=== PATIENT | female | born 1975 ===

== ENCOUNTER 2016-09-18 11:03 | Emergency (ER) | payer MEDICAID ==
[2016-09-18 11:04] VITALS: BMI 37.8
[2016-09-18 11:08] VITALS: BP 129/81; PULSE 95; RESP 19; TEMP 98.1; O2SAT 99
--- NOTE | 2016-09-18 12:21 | ED PDOC ---
HPI: Abdomen Time Seen by Provider: 09/18/16 11:42 Chief Complaint (Nursing): Abdominal Pain Chief Complaint (Provider): Abdominal Pain History Per: Patient History/Exam Limitations: no limitations Onset/Duration Of Symptoms: Days Current Symptoms Are (Timing): Still Present Severity: Mild Location Of Pain/Discomfort: Suprapubic Quality Of Discomfort: "Pain" Associated Symptoms: denies: Fever, Nausea, Urinary Symptoms Exacerbating Factors: None Alleviating Factors: None Additional Complaint(s): Patient is a 41 year old female who is reportedly 18 weeks , presents to ED for decreased movement since yesterday. Patient also reports mild surpapubic pain but denies vaginal bleeding or vaginal discharged. Normal U/S 1 month ago. OB_GYN: Dr. Chen Past Medical History Reviewed: Historical Data, Nursing Documentation, Vital Signs Vital Signs: Last Vital Signs Temp 98.1 F 09/18/16 11:08 Pulse 95 H 09/18/16 11:08 Resp 19 09/18/16 11:08 BP 129/81 09/18/16 11:08 Pulse Ox 99 09/18/16 14:47 - Medical History PMH: Asthma Denies: Chronic Kidney Disease - Surgical History Surgical History: No Surg Hx - Family History Family History: States: Unknown Family Hx - Living Arrangements Living Arrangements: With Family - Home Medications Home Medications: Ambulatory Orders Medication Instructions Recorded Acetaminophen [Non-Aspirin Pain 650 mg PO Q4 PRN #20 tablet 07/07/16 Relief] Oseltamivir Phosphate [Tamiflu] 75 mg PO BID #10 capsule 07/07/16 - Allergies Allergies/Adverse Reactions: Allergies Allergy/AdvReac Type Severity Reaction Status Date / Time No Known Allergies Allergy Verified 09/18/16 11:29 Review of Systems ROS Statement: Except As Marked, All Systems Reviewed And Found Negative Constitutional: Negative for: Fever, Weakness Gastrointestinal: Positive for: Abdominal Pain. Negative for: Nausea, Vomiting Genitourinary Female: Negative for: Dysuria, Vaginal Discharge, Vaginal Bleeding Musculoskeletal: Negative for: Back Pain Neurological: Negative for: Weakness, Numbness Physical Exam - Reviewed Nursing Documentation Reviewed: Yes Vital Signs Reviewed: Yes - Physical Exam Appears: Positive for: Non-toxic, No Acute Distress Skin: Positive for: Normal Color, Warm Eye Exam: Positive for: Normal appearance Neck: Positive for: Normal, Painless ROM Gastrointestinal/Abdominal: Positive for: Tenderness (mild surpapubic ), Other ( Gravid uterus ). Negative for: Distended, Guarding, Rebound Extremity: Positive for: Normal ROM Neurologic/Psych: Positive for: Alert, Oriented - Laboratory Results Result Diagrams: 09/18/16 13:25 09/18/16 13:25 - ECG O2 Sat by Pulse Oximetry: 99 (RA) Pulse Ox Interpretation: Normal Medical Decision Making Medical Decision Making: Time: 1215 Initial impression: demise and threatened miscarriage Initial plan: -- BMP -- Urine preg -- Urine dip -- CBC -- U/S Time: 1445 U/S results reveiwed PROCEDURE: OB Pelvic Ultrasound HISTORY: no movements COMPARISON: 1227 FINDINGS: UTERUS: Gestational sac: There is a single live intrauterine fetus in oblique presentation. Heart rate: 148 bpm. BPD: 4.46 cm corresponding to 19 weeks and 3 days of gestational age HC: 16.7 cm corresponding to 19 weeks and 3 days of gestational age AC: 13.9 T8 cm corresponding to 19 weeks and 3 days of gestational age FL: 3.1 cm corresponding to 19 weeks and 4 days of gestational age age (Ultrasound estimated): 19 weeks and 2 days Date of delivery (Ultrasound estimated) : 02/09/2017 Placenta is posterior. CERVIX: Long and closed. No cervical abnormality seen. The cervical length measures 5.1 cm. RIGHT OVARY: Not visualized. LEFT OVARY: Not visualized. FREE FLUID: None. OTHER FINDINGS: None. IMPRESSION: Single live intrauterine fetus in oblique presentation with mean gestational age of 19 weeks and 2 days. heart rate is 148 beats per minute. The ultrasound dates correspond with the clinical dates. Scribe Attestation: Documented by Sherrill Mclean acting as a scribe for Toshia Romano MD MD Scribe Attestation: All medical record entries made by the Scribe were at my direction and personally dictated by me. I have reviewed the chart and agree that the record accurately reflects my personal performance of the history, physical exam, medical decision making, and the department course for this patient. I have also personally directed, reviewed, and agree with the discharge instructions and disposition. Disposition - Clinical Impression Clinical Impression: Abdominal pain during , Threatened in second trimester - Patient ED Disposition Is Patient to be Admitted: No Doctor Will See Patient In The: Office Counseled Patient/Family Regarding: Studies Performed, Diagnosis, Need For Followup - Disposition Referrals: Pauly Radford MD [Family Provider] - Disposition: Routine/Home Disposition Time: 15:29 Condition: GOOD Additional Instructions: Follow up with your PCP within 1 week. Return for worsening. Instructions: Abdominal Pain in (ED)
[2016-09-18 13:46] LABS: CHLORIDE 103 mmol/L (98-107); SODIUM 135 mmol/l (132-148)
[2016-09-18 13:49] LABS: CARBON DIOXIDE 21 mmol/L (22-30); GFR AFRICAN-AMERICAN > 60
[2016-09-18 13:50] LABS: BLOOD UREA NITROGEN 6 mg/dl (7-17); CALCIUM 9.3 mg/dL (8.4-10.2); GLUCOSE,RANDOM 78 mg/dL (65-105)
[2016-09-18 13:51] LABS: POTASSIUM 4.6 MMOL/L (3.6-5.0)
--- NOTE | 2016-09-18 14:11 | US ---
PROCEDURE: OB Pelvic Ultrasound HISTORY: no movements COMPARISON: 1227 FINDINGS: UTERUS: Gestational sac: There is a single live intrauterine fetus in oblique presentation. Heart rate: 148 bpm. BPD: 4.46 cm corresponding to 19 weeks and 3 days of gestational age HC: 16.7 cm corresponding to 19 weeks and 3 days of gestational age AC: 13.9 T8 cm corresponding to 19 weeks and 3 days of gestational age FL: 3.1 cm corresponding to 19 weeks and 4 days of gestational age age (Ultrasound estimated): 19 weeks and 2 days Date of delivery (Ultrasound estimated) : 02/09/2017 Placenta is posterior. CERVIX: Long and closed. No cervical abnormality seen. The cervical length measures 5.1 cm. RIGHT OVARY: Not visualized. LEFT OVARY: Not visualized. FREE FLUID: None. OTHER FINDINGS: None. IMPRESSION: Single live intrauterine fetus in oblique presentation with mean gestational age of 19 weeks and 2 days. heart rate is 148 beats per minute. The ultrasound dates correspond with the clinical dates.
[2016-09-18 14:40] LABS: BASO % 0.5 % (0.0-2.0); EOS # 0.2 K/uL (0.0-0.7); EOS % 2.4 % (0.0-4.0); HEMATOCRIT 35.2 % (34.0-47.0); LYMPH # 2.1 K/uL (1.0-4.3); LYMPH % 23.1 % (20.0-40.0); MEAN CORPUSCULAR HEMOGLOBIN 26.6 pg (27.0-31.0); MEAN CORPUSCULAR HGB CONC 31.9 g/dL (33.0-37.0); MEAN PLATELET VOLUME 11.5 fl (7.2-11.7); MONO # 0.6 K/uL (0.0-0.8); MONO % 6.9 % (0.0-10.0); NEUT # 6.1 K/uL (1.8-7.0); NEUT % 67.1 % (50.0-75.0); NRBC % 4.9 % (0.0-0.0); RED CELL DISTRIBUTION WIDTH 15.6 % (11.5-14.5); WHITE BLOOD COUNT 9.1 K/uL (4.8-10.8)
[2016-09-18 14:44] LABS: MEAN CELL VOLUME 83.2 fl (81.0-99.0)
== END 2016-09-18 15:37 | disposition home or self-care (01) ==
LOC: H.ER 11:03
DX: O26.899 Other specified pregnancy related conditions, unspecified trimester (principal); Z3A.19 19 weeks gestation of pregnancy; O20.0 Threatened abortion

== ENCOUNTER 2016-10-12 15:29 | Emergency (ER) | payer MEDICAID ==
[2016-10-12 16:08] VITALS: BMI 35.6
[2016-10-12 16:10] VITALS: BP 118/67; PULSE 92; RESP 19; TEMP 97.8; O2SAT 100
--- NOTE | 2016-10-12 16:11 | ED PDOC ---
HPI: CCC, URI, Sore Throat Time Seen by Provider: 10/12/16 15:56 Chief Complaint (Provider): Nasal Congestion History Per: Patient, Family (daughter) History/Exam Limitations: no limitations Have you had recent travel within the past 21 days to any of the following countries: [place], [place], [place] or [place]?: No Onset/Duration Of Symptoms: Days (a few days) Current Symptoms Are (Timing): Still Present Associated Symptoms: denies: Fever, Chills, Cough Additional Complaint(s): Aileen tAkinson is a 41 year old female, with an EGA of approximately 21 weeks and a past medical history inclusive of asthma, who presents to the ED on , accompanied by her daughter, for the evaluation of moderate nasal congestion that she has experienced over the past few days. Some associated nighttime rhinorrhea also reported in addition to pruritus of her eyes/ears. Denies fever, chills or cough. PMD: [facility] Past Medical History Reviewed: Historical Data, Nursing Documentation, Vital Signs Vital Signs: Last Vital Signs Temp 97.8 F 10/12/16 16:08 Pulse 92 H 10/12/16 16:08 Resp 19 10/12/16 16:08 BP 118/67 10/12/16 16:08 Pulse Ox 100 10/12/16 16:08 - Medical History PMH: Asthma Denies: Chronic Kidney Disease - Family History Family History: States: Unknown Family Hx - Living Arrangements Living Arrangements: With Family - Home Medications Home Medications: Ambulatory Orders Medication Instructions Recorded Acetaminophen [Non-Aspirin Pain 650 mg PO Q4 PRN #20 tablet 07/07/16 Relief] Oseltamivir Phosphate [Tamiflu] 75 mg PO BID #10 capsule 07/07/16 Loratadine [Claritin] 10 mg PO DAILY PRN #5 tab 10/12/16 - Allergies Allergies/Adverse Reactions: Allergies Allergy/AdvReac Type Severity Reaction Status Date / Time No Known Allergies Allergy Verified 09/18/16 11:29 Review of Systems Constitutional: Negative for: Fever, Chills Eyes: Positive for: Other (eye pruritus) ENT: Positive for: Nose Discharge, Nose Congestion, Other (ear pruritus) Respiratory: Negative for: Cough Gastrointestinal: Negative for: Nausea, Vomiting, Abdominal Pain Genitourinary Female: Negative for: Dysuria, Vaginal Discharge, Vaginal Bleeding , Pelvic Pain Physical Exam - Reviewed Nursing Documentation Reviewed: Yes Vital Signs Reviewed: Yes - Physical Exam Appears: Positive for: Non-toxic, No Acute Distress Head Exam: Positive for: ATRAUMATIC, NORMOCEPHALIC Skin: Positive for: Normal Color, Warm, Dry Eye Exam: Positive for: Normal appearance, PERRL ENT: Positive for: Pharynx Is (clear), Nasal Congestion, Other (uvula midline). Negative for: Pharyngeal Erythema, Tonsillar Exudate, Tonsillar Swelling Cardiovascular/Chest: Positive for: Regular Rate, Rhythm. Negative for: Murmur Respiratory: Positive for: Normal Breath Sounds. Negative for: Rales, Rhonchi, Wheezing, Respiratory Distress Neurologic/Psych: Positive for: Alert, Oriented Medical Decision Making Medical Decision Makin:56 Initial Impression: allergic rhinitis 16:15 Patient is medically stable and requires no emergent treatment in the ED at this time. Patient will be discharged home with Rx for Claritin. Counseling was provided and all questions were answered regarding diagnosis and need for follow up with [facility]. There is agreement to discharge plan. Return if symptoms persist or worsen. Clinical Impression: allergic rhinitis Scribe Attestation: Documented by Mayra Preston, acting as a scribe for Isabella Bucio MD. Provider Scribe Attestation: All medical record entries made by the Scribe were at my direction and personally dictated by me. I have reviewed the chart and agree that the record accurately reflects my personal performance of the history, physical exam, medical decision making, and the department course for this patient. I have also personally directed, reviewed, and agree with the discharge instructions and disposition. Disposition - Clinical Impression Clinical Impression: Allergic rhinitis - Patient ED Disposition Is Patient to be Admitted: No Counseled Patient/Family Regarding: Diagnosis, Need For Followup, Rx Given - Disposition [facility]errals[facility]] Disposition: Routine/Home Disposition Time: 16:15 Condition: STABLE Prescriptions: Loratadine [Claritin] 10 mg PO DAILY PRN #5 tab PRN Reason: Allergy Symptoms Instructions: Allergic Rhinitis (ED) Print Language: FRISIAN
== END 2016-10-12 16:51 | disposition home or self-care (01) ==
LOC: H.ER 15:29
DX: J30.9 Allergic rhinitis, unspecified (principal)

== ENCOUNTER 2017-01-06 16:46 | Emergency (ER) | payer MEDICAID ==
[2017-01-06 17:11] VITALS: BMI 35.4
[2017-01-06 19:34] LABS: ALB/GLOB RATIO 1.1 (1.0-2.1); ALBUMIN 3.4 g/dL (3.5-5.0); ALT/SGPT 40 U/L (9-52); AST/SGOT 25 U/L (14-36); BLOOD UREA NITROGEN 6 mg/dl (7-17); CALCIUM 9.2 mg/dL (8.4-10.2); GFR AFRICAN-AMERICAN > 60; GFR NON-AFRICAN AMERICAN > 60
[2017-01-06 19:37] LABS: SQUAMOUS EPITHIAL 3 /hpf (0-5); URINE BACTERIA RARE (<OCC); URINE BILIRUBIN NEGATIVE (NEGATIVE); URINE BLOOD NEGATIVE (NEGATIVE); URINE CLARITY SLIGHTY-CLOUDY (Clear); URINE COLOR YELLOW (YELLOW); URINE GLUCOSE (UA) NEG (Normal); URINE LEUKOCYTE ESTERASE NEG Leu/uL (Negative); URINE NITRATE NEGATIVE (NEGATIVE); URINE PROTEIN NEGATIVE (NEGATIVE); URINE UROBILINOGEN 0.2-1.0 mg/dL (0.2-1.0)
--- NOTE | 2017-01-06 21:09 | OBHP ---
Datetime: 01/06/2017 17:38 IP Adm Impression: , intrauterine IP Chief Complaint Other: suprapubic pain/pressure IP Admit Plan: Observation/Evaluation Admit Comment, IP Provider: 41 yo at 34 weeks GA, EDC 02/17/17 w/ LMP on 05/13/16 confirmed with first trimester US presents to [facility] w/ c/o suprapubic pain and pressure since 5pm last night. pt repo rts burning sensation w/ urination x 1 day. reports +fm and states feels contraction every 1 hour and last for 5 min. denies VB,LOF. Denies nausea, vomiting, fever, chills or flank pain. denies chest p ain, dyspnea or blurry vision. 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 medications: pnv, iron allergies: NKDA Assessment: 41 yo at 34 weeks GA presents to [facility] w/ c/o suprapubic pain and pressure since 5 pm last night and dysuria x 1 day. Plan: continue monitor UA cmp fractionaed bile acid level. Case presented and discussed with on-call OB hospitalist Dr. Madison. Pt will be diascharged home if normal blood and urine test results. Sultan Gomez, PGY1 obh addendum: Clarificationand addition to above Pt has been diagnosed with scabies infection in ob clinic. o: lesions are discrete maculopapula lesions;no diffuse eryhthema noted p: d/c home ptl precauti f/u with ob clinic within 1wk Extremities - PN: Abnormal Abdomen - PN: Abnormal Back - PN: Normal Lungs - PN: Normal Heart - PN: Normal Neurologic - PN: Normal HEENT - PN: Normal General - PN: Normal FHR - Baseline A Provider: 140 Membranes, Provider: Intact Comments, ACOG Physical Exam: skin: discrete maculopapular erythematous rash of diffrent stages on a bdomen, thigh and hands. no signs of superficial bacterial infection. bedside US: fetus in cephalic presenation. Gestation - Est Wks by US: 34.0 IP Hx Assessment: The History has been Reviewed and is Current EGA AdmitDate IP: 34.0 Vital Signs Provider: Reviewed IP Chief Complaint: Maternal discomfort NICHD Variability Prov Fetus A: Moderate 6-25bpm NICHD Accel Fetus A IP Provider: 15X15 FHR Category Provider Fetus A: Category I NICHD Decel Fetus A IP Provider: None Dilatation, Provider: 0 Effacement, Provider: 0 Station, Provider: -3 Genitourinary Exam: Normal DTRs - PN: Normal
== END 2017-01-06 20:22 | disposition home or self-care (01) ==
LOC: H.EROB2 16:46
DX: O47.03 False labor before 37 completed weeks of gestation, third trimester (principal); Z3A.34 34 weeks gestation of pregnancy

== ENCOUNTER 2017-02-01 19:56 | Inpatient (IN) | payer MEDICAID ==
[2017-02-01 20:24] VITALS: BMI 36.3
[2017-02-01] MEDS: Lactated Ringer's 1,000 ML IV SCH ×3 (20:28→22:00)
--- NOTE | 2017-02-01 20:39 | OBADHP ---
Datetime: 02/01/2017 20:32 Admit Comment, IP Provider: 41-year-old at 37 weeks and 5 days gestational age presents to OB ED complaining of contractions. Patient denies any vaginal bleeding or leakage of fluids. Patient reports good movement. Otherwise, patient without complaints. records reviewed. Prenat al care significant for abnormal first trimester screen with subsequent normal amnio, advanced matern al age. GBS negative Past medical history none Past surgical history none Medications vitamins No known drug allergies Obstetrical history normal spontaneous vaginal delivery 4 Social history no tobacco, no alcohol, no drugs Physical exam: Refer to physical exam findings Assessment: 41-year-old at 37 weeks 5 days gestational age in early labor. Both maternal well-being a nd well-being reassuring at this time. GBS negative. Plan: Admit to labor and delivery for management of labor Patient requesting epidural, contact anesthesia Pelvic Type - PN: Adequate Extremities - PN: Normal Abdomen - PN: Normal Back - PN: Normal Breast - PN: Normal Lungs - PN: Normal Heart - PN: Normal Thyroid - PN: Normal Neurologic - PN: Normal HEENT - PN: Normal General - PN: Normal FHR - Baseline A Provider: 130s-140s Membranes, Provider: Intact Comments, ACOG Physical Exam: Cervix 2 cm, 90% effaced, -1 station Membranes intact Cephalic by exam Estimated weight by exam 7 pounds IP Hx Assessment: The History has been Reviewed and is Current Vital Signs Provider: Reviewed; Within Normal Limits IP Chief Complaint: Uterine contractions NICHD Variability Prov Fetus A: Moderate 6-25bpm NICHD Accel Fetus A IP Provider: 15X15 FHR Category Provider Fetus A: Category I NICHD Decel Fetus A IP Provider: None Dilatation, Provider: 2 Effacement, Provider: 90 Station, Provider: -1 Genitourinary Exam: Normal DTRs - PN: Normal EGA AdmitDate IP: 37.5 IP Adm Impression: Term, intrauterine ; Active labor; Intact Membranes IP Admit Plan: Admit to unit; Initiate labor protocol Datetime: 01/06/2017 17:38 IP Chief Complaint Other: suprapubic pain/pressure Gestation - Est Wks by US: 34.0
[2017-02-01 20:53] VITALS: O2SAT 100
[2017-02-01 20:56] LABS: BASO % 0.6 % (0.0-2.0); EOS % 0.4 % (0.0-4.0); HEMATOCRIT 37.4 % (34.0-47.0); LYMPH # 2.1 K/uL (1.0-4.3); LYMPH % 25.4 % (20.0-40.0); MEAN CELL VOLUME 84.3 fl (81.0-99.0); MEAN PLATELET VOLUME 11.1 fl (7.2-11.7); MONO # 0.4 K/uL (0.0-0.8); MONO % 5.2 % (0.0-10.0); NEUT # 5.7 K/uL (1.8-7.0); NEUT % 68.4 % (50.0-75.0); RED CELL DISTRIBUTION WIDTH 15.8 % (11.5-14.5); WHITE BLOOD COUNT 8.3 K/uL (4.8-10.8)
[2017-02-01] MEDS ORDERED: Fentanyl/Bupivacaine HCl 250 ML EPI ONE (21:34)
[2017-02-01] MEDS ORDERED: Oxytocin 30 units/LR 500ML 30 U/500 ML BAG IV ONE (22:46)
[2017-02-01] MEDS ORDERED: Lidocaine 1% Inj (20ml) ONE (23:20)
[2017-02-02] MEDS ORDERED: Bupivacaine HCl 0.25% PF (10 ml) Inj ONE (00:43)
[2017-02-02] MEDS: Lactated Ringer's 1,000 ML IV SCH (05:00)
[2017-02-02] MEDS ORDERED: Oxytocin 30 units/LR 500ML 30 U/500 ML BAG IV ONE (05:58)
[2017-02-02] MEDS: Multivitamin With Minerals Tab PO SCH (08:51)
--- NOTE | 2017-02-02 12:44 | OBDS ---
DELIVERY PERSONNEL Delivery Doctor: Petrona Le MD Cancer Genetics Assistant: Janine Garland RN Anesthesiologist: Meet Fraga MD MATERNAL INFORMATION Delivery Anesthesia: Epidural Medications in Delivery: Pitocin Estimated Blood Loss (ml): 200 Placenta Cultured: No Maternal Complications: None Provider Comments: Normal spontaneous vaginal delivery. Patient delivered viable infant with Apgars of 9 and 9 at one and 5 minutes respectively. Infant delivered by LUANNE position. First-degree lacerati on repaired, as above. Placenta delivered spontaneously. Uterus firm and appropriately hemostatic fol lowing delivery. Patient tolerated delivery and repair well. No complications. Estimated blood loss 2 00 mL. LABOR SUMMARY EDC: 02/17/2017 00:00 No. Babies in Womb: 1 Attempted: No Labor Anesthesia: Epidural LABOR INFORMATION Reason for Induction: Not Applicable Onset of Labor: 01/31/2017 12:00 Complete Dilatation: 02/02/2017 05:41 Oxytocin: Augmentation Group B Beta Strep: Negative Antibiotics # of Doses: 0 Steroids Given: None Reason Steroids Not Administered: Not Applicable MEMBRANES Membranes Rupture Method: Artificial Rupture of Membranes: 02/01/2017 22:34 Length of Rupture (hrs): 7.35 Amniotic Fluid Color: Clear Amniotic Fluid Amount: Small STAGES OF LABOR Stage 1 hrs: 41 Stage 1 min: 41 Stage 2 hrs: 0 Stage 2 min: 14 Stage 3 hrs: 0 Stage 3 min: 3 Total Time in Labor hrs: 41 Total Time in Labor min: 58 VAGINAL DELIVERY Episiotomy: None Laceration Extension: First Degree Laceration Type: Vaginal Laceration Repair: Yes Laceration Repair Note: A first-degree midline perineal laceration. Area infiltrated with 1% lidocai ne. Laceration repaired with 2. 0 Rapide without complication. Patient tolerated well. Initial Vag Sponge Count: 15 Final Vag Sponge Count: 15 Initial Vag Sharps Count: 1 Final Vag Sharps Count: 1 Sponge Count Correct: Yes Sharps Count Correct: Yes Count Comment: count correct BABY A INFORMATION Delivery Date/Time: 02/02/2017 05:55 Method of Delivery: Vaginal Born in Route : No : N/A Forceps: N/A Vacuum Extraction: N/A Shoulder Dystocia : No SHOULDER DYSTOCIA BABY A Delivery Date/Time: 02/02/2017 05:55 PRESENTATION/POSITION BABY A Presentation: Cephalic Cephalic Presentation: Vertex PLACENTA INFORMATION BABY A Placenta Delivery Time : 02/02/2017 05:58 Placenta Method of Delivery: Spontaneous Placenta Status: Delivered SCORES BABY A Heart Rate 1 min: >100 bpm Resp Effort 1 min: Good Cry Reflex Irritability 1 min: Cough or Sneeze or Pulls Away Muscle Tone 1 min: Active Motion Color 1 min: Body Colver, Extremities Blue Resuscitation Effort 1 min: Tactile Stimulation SCORE 1 MIN: 9 Heart Rate 5 min: >100 bpm Resp Effort 5 min: Good Cry Reflex Irritability 5 min: Cough or Sneeze or Pulls Away Muscle Tone 5 min: Active Motion Color 5 min: Body Colver, Extremities Blue Resuscitation Effort 5 min: N/A SCORE 5 MIN: 9 INFORMATION BABY A Gestational Age at Delivery: 37.6 Gestational Status: Term Infant Outcome : Liveborn Infant Condition : Stable Sex: Male IDENTIFICATION/MEDS BABY A ID Band Number: [id number] ID Band Location: Left Leg; Left Arm WEIGHT/LENGTH BABY A Birthweight (gms): 2865 Infant Weight (lb): 6 Weight (oz): 5 CORD INFORMATION BABY A No. Cord Vessels: 3 Nuchal Cord : N/A Infant Cord pH Baby Arterial: n/a Cord pH Baby Venous: n/a Cord Blood Taken: Yes Suction: Mouth; Nose ASSESSMENT BABY A Infant Complications: Multiple Variable Decels Physical Findings at Delivery: Within Normal Limits Respirations: Appears Normal Sales Communications Manager/ALS Called : No Care By: Dom Transferred To: Remains with Mother
[2017-02-02] MEDS: Oxycodone/Acetaminophen 5/325 mg Tab PO PRN ×2 (15:26→21:18)
[2017-02-03] MEDS: Oxycodone/Acetaminophen 5/325 mg Tab PO PRN (01:55)
[2017-02-03 07:22] LABS: HEMATOCRIT 30.8 % (34.0-47.0); MEAN CORPUSCULAR HGB CONC 31.8 g/dL (33.0-37.0); RED CELL DISTRIBUTION WIDTH 16.1 % (11.5-14.5)
[2017-02-03 07:51] LABS: WHITE BLOOD COUNT 13.4 K/uL (4.8-10.8)
[2017-02-03] MEDS: Multivitamin With Minerals Tab PO SCH (10:26)
--- NOTE | 2017-02-03 16:32 | OBPPN ---
Datetime: 02/03/2017 12:07 PP Pain Prov: Within normal limits PP Nausea Prov: Denies PP Flatus Prov: Yes PP BM Prov: Yes PP Breasts Prov: Normal PP Heart Prov: Normal PP Lungs Prov: Normal PP Abdomen/Uterus Prov: Normal PP Lochia Prov: Normal PP Vulva/Perineum Prov: Normal PP CVA Tenderness Prov: Not Done PP Extremities Prov: Normal PP C/S Incision Prov: Not Applicable PP Progress Prov: Normal PP Impression Prov: Normal progression PP Plan Prov: Continue present management PP Progress Note Prov: S: 41 YO s/p 02/02/17. Pt is seen and examined at bedside this AM. No acute overnight events. Pt reports some abdominal pain but well controlled with medications. Pt i s ambulating without difficulties to the bathroom, breast feeding and tolerating PO diet well. Lochia is similar to menses and decreasing in volume. + flatus, + BM. Denies fever/chills, diarrhea, nausea /vomiting, CP/SOB , lightheadedness, calf pain. O: VS: stable Gen: NAD Cardio: S1S2 no M/G/R Resp: clear breathing b/l Abdomen: non-ten, BS+, uterus is below the umbillicus and firm. Ext: non tender and no edema noted NEURO/PSYCHI: AAOx3, no grossly focal deficit, preserved affect and mood. Assessment: 41 YO s/p 02/02/17. Pt is doing well this morning, endorses minimal abdomin al pain but tolerating well with pain meds, ambulating and tolerating PO diet. PPD 1 Pt is encouraged to continue and ambulate continue pain medications percocet and ibuprofen as needed follow up pCBC continue present management in PP Disposition: d/c to home on 02/04/17 Heidy Wolff, PGY I obh addendum: pt seen _ examined by me. agree with above assessmenta and plan. IP PP Procedures: None Vital Signs Provider PP: Reviewed; Within Normal Limits
[2017-02-04] MEDS: Oxycodone/Acetaminophen 5/325 mg Tab PO PRN (01:25)
[2017-02-04] MEDS: Hydrocortisone-Pramoxine 1%-1% Foam(10 gm) TOP SCH ×2 (02:25→09:21)
[2017-02-04] MEDS: Multivitamin With Minerals Tab PO SCH (09:20)
--- NOTE | 2017-02-04 09:49 | OBPPN ---
Datetime: 02/04/2017 05:37 PP Pain Prov: Within normal limits PP Nausea Prov: Denies PP Flatus Prov: Yes PP BM Prov: Yes PP Breasts Prov: Not Done PP Heart Prov: Normal PP Lungs Prov: Normal PP Abdomen/Uterus Prov: Normal PP Lochia Prov: Normal PP Vulva/Perineum Prov: Normal PP CVA Tenderness Prov: Not Done PP Extremities Prov: Normal PP C/S Incision Prov: Not Applicable PP Progress Prov: Normal PP Impression Prov: Normal progression PP Plan Prov: Discharge PP Progress Note Prov: S: 41 YO s/p NVD 02/02/17. Pt seen this morning, pain is controlled with meds, pt is ambulating, breast feeding and tolerating PO diet well. Lochia is similar to menses and d ecreasing in volume. + flatus, + BM. Denies fever/chills, diarrhea, nausea/vomiting, CP/SOB , lighthe adedness, calf pain. -last night pt was c/o of Hemrroids pain, Epifoam and tucks were ordered. O: VS: stable Gen: NAD Cardio: S1S2 no M/G/R Resp: clear breathing b/l Abdomen: non-ten, BS+, uterus is below the umbillicus and firm. Ext: non tender and no edema noted NEURO/PSYCHI: AAOx3, no grossly focal deficit, preserved affect and mood. Assessment: 41 YO s/p 02/02/17. PPD 2 Pt is encouraged to continue and ambulate continue pain medications ibuprofen as needed follow up [facility] pp is 9.8/30.8 continue iron and colace Disposition: d/c to home today 02/04/17 --- Trena Cristina, PGY-1 OB Hospitalist note: This pt was seen and examined by me. Agree with above note. MAHNDO Anemia: asymptomatic IP PP Procedures: None Vital Signs Provider PP: Reviewed; Within Normal Limits
--- NOTE | 2017-02-04 09:49 | OBDCSUM ---
Datetime: 02/04/2017 04:46 Discharged to, Provider: Home Follow up at, Provider: [facility] Disch Instr Activity: Normal activity Disch Instr Diet: Regular Discharge Instructions, Provider: Routine instructions given Discharge Diagnosis, Provider: Term Delivered Discharge Time: 02/04/2017 09:00 Follow up in weeks, Provider: f/u NB visit 02/06 at 4pm and PP visit 03/11 at 10am Disch Referrals: None Contraception discussed, Prov: Yes Disch Activity Restrictions: No sexual activity; Nothing in vagina - Clemons, tampons, douche Discharge Comment, Provider: DOA: 02/01/17 EGA: 37.6 Diagnosis: NVD PRisk factors: none summary of : L_D summary: 41 y/o F DOL: 02/02/17 at 5:55am NVD NB: male : 99 Weight: 2865 PP summary: No serious complications during PP. Lochia= menses, mild pain, controlled with medications Rubella immune, Tdap 12/05/16 blood type: B+ CBC pp: 9.8/30.8 Discharge Date 02/04/17, time 10:00AM Discharge Instructions: -encourage -Ibuprofen for pain PRN -Colace for constipation -Iron -Ambulate as tolerated -f/u NB visit 02/06 at 4pm and PP visit 03/11 at 10am --- Trena Cristina, PGY-1 Datetime: 01/06/2017 20:22 Discharge Instructions, Provider: Routine instructions given Contraception discussed, Prov: Yes
[2017-02-05 00:36] VITALS: BP 121/69; PULSE 72; RESP 20; TEMP 98.6
== END 2017-02-04 14:10 | disposition home or self-care (01) | DRG 373 ==
LOC: H.EROB2 19:56 → H.L&D 20:37 → H.OB/GYN 02-02 08:30
PROVIDERS: ADMIT Obstetrics & Gynecology; ATTEND Obstetrics & Gynecology
PROC: 4A1HXCZ Monitoring of Products of Conception, Cardiac Rate, External Approach (ICD-10-PCS; 2017-02-01)
PROC: 10E0XZZ Delivery of Products of Conception, External Approach (ICD-10-PCS; principal; 2017-02-02)
PROC: 0HQ9XZZ Repair Perineum Skin, External Approach (ICD-10-PCS; 2017-02-02)
DX: O76 Abnormality in fetal heart rate and rhythm complicating labor and delivery (principal); O70.0 First degree perineal laceration during delivery; O09.523 Supervision of elderly multigravida, third trimester; Z37.0 Single live birth; Z3A.37 37 weeks gestation of pregnancy

== ENCOUNTER 2017-02-07 12:52 | Inpatient (IN) | payer MEDICAID ==
[2017-02-07 13:01] VITALS: BMI 35.4
[2017-02-07] MEDS ORDERED: Labetalol 5 mg/ml Inj 20ML IVP ONE (13:45)
--- NOTE | 2017-02-07 13:54 | CT ---
PROCEDURE: CT HEAD WITHOUT CONTRAST. HISTORY: HTN headache COMPARISON: None available. TECHNIQUE: Axial computed tomography images were obtained through the head/brain without intravenous contrast. Radiation dose: Total exam DLP = 1035.54 mGy-cm. This CT exam was performed using one or more of the following dose reduction techniques: Automated exposure control, adjustment of the mA and/or kV according to patient size, and/or use of iterative reconstruction technique. FINDINGS: HEMORRHAGE: No acute parenchymal, subarachnoid or extra-axial hemorrhage. BRAIN: No evidence of large acute infarct. No obvious parenchymal nor extra-axial mass or collection . VENTRICLES: No obstructive hydrocephalus. CALVARIUM: No acute calvarial fractures. PARANASAL SINUSES: Unremarkable as visualized. No significant inflammatory changes. Mildly prominent adenoids. MASTOID AIR CELLS: Unremarkable as visualized. No inflammatory changes. OTHER FINDINGS: None. IMPRESSION: No acute intracranial hemorrhage.
--- NOTE | 2017-02-07 14:09 | ED PDOC ---
HPI: Abdomen Time Seen by Provider: 02/07/17 13:19 Chief Complaint (Nursing): Abdominal Pain Chief Complaint (Provider): Abdominal Pain History Per: Patient History/Exam Limitations: no limitations Onset/Duration Of Symptoms: Days Current Symptoms Are (Timing): Still Present Additional Complaint(s): 41 y/o female who is presents to the emergency department with a complaint of abdominal pain, rectal pain, headache, dizziness, elevated blood pressure, and moderate vaginal bleeding for a couple of days. Patient is and had a normal, spontaneous, vaginal delivery, without complications 5 days ago and went home on 02/04/2017.Reports she is currently breast-feeding. Denies history of hemorrhoids history of hypertension or hypertension during , change of vision, bruising, or fever. Past Medical History Reviewed: Historical Data, Nursing Documentation, Vital Signs Vital Signs: Last Vital Signs Temp 98.3 F 02/10/17 16:05 Pulse 48 L 02/10/17 16:05 Resp 20 02/10/17 16:05 BP 145/73 02/10/17 16:05 Pulse Ox 96 02/10/17 16:05 - Medical History PMH: Asthma Denies: Depression, Diabetes, HTN, Chronic Kidney Disease - Family History Family History: States: Unknown Family Hx - Home Medications Home Medications: Ambulatory Orders Medication Instructions Recorded Docusate Sodium [Colace] 100 mg PO BID #30 capsule 02/04/17 Ferrous Sulfate [Feosol] 325 mg PO BID #30 tab 02/04/17 Ibuprofen [Motrin Tab] 600 mg PO Q6 PRN #30 tab 02/04/17 Multimineral/Multivitamin 1 tab PO DAILY tab 02/04/17 [Therapeutic-M Tab] - Allergies Allergies/Adverse Reactions: Allergies Allergy/AdvReac Type Severity Reaction Status Date / Time No Known Allergies Allergy Verified 09/18/16 11:29 Review of Systems Constitutional: Negative for: Fever, Other (Bruising) Physical Exam - Reviewed Nursing Documentation Reviewed: Yes Vital Signs Reviewed: Yes - Physical Exam Appears: Positive for: Non-toxic, In Acute Distress (Mild painful) Head Exam: Positive for: ATRAUMATIC, NORMAL INSPECTION, NORMOCEPHALIC Skin: Positive for: Normal Color, Warm, Dry Pelvic Exam: Positive for: External Exam Normal, Other (mild diffuse tenderness with firm uterus) - Laboratory Results Result Diagrams: 02/09/17 05:30 02/10/17 05:35 - ECG O2 Sat by Pulse Oximetry: 98 (RA) Pulse Ox Interpretation: Normal Medical Decision Making Medical Decision Making: Time: 13:26 Initial impression:Work up for preeclampsia vs HELLP syndrome vs constipation vs other. Will discuss with OB Initial plan: --Head CT --Labetalol 10 mg IVP --Tylenol 650 mg PO --EKG --B-Type Natriuretic --CMP --Troponin I --CBC w/ diff --PTT & Prothrombin --Tylenol 650 mg PO --Clonidine 0.2 mg PO --Reevaluation --Patient given meds for elevated blood pressure and pending blood work up obtained. Time: 13:53 --Head CT FINDINGS: HEMORRHAGE: No acute parenchymal, subarachnoid or extra-axial hemorrhage. BRAIN: No evidence of large acute infarct. No obvious parenchymal nor extra-axial mass or collection . VENTRICLES: No obstructive hydrocephalus. CALVARIUM: No acute calvarial fractures. PARANASAL SINUSES: Unremarkable as visualized. No significant inflammatory changes. Mildly prominent adenoids. MASTOID AIR CELLS: Unremarkable as visualized. No inflammatory changes. OTHER FINDINGS: None. IMPRESSION: No acute intracranial hemorrhage. labs reviewed, revealing elev transaminases compared to prior, mild elev BNP. 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 Patient found to be bradycardic to mid 30s in ED, rhythm strips scanned to chart. Maintained sinus rhythm with adequate BP however. Given elev BNP, new hypertension requiring antihypertensive therapy, epigastric pain, elev LFTs, bradycardia, r/o complication/ cardiomyopathy, preeclampsia, other. Admit FP service pending CT abd/pelv Scribe Attestation: Documented by Ludy Lindsey, acting as a scribe for Moo Cannon MD. Provider Scribe Attestation: All medical record entries made by the Scribe were at my direction and personally dictated by me. I have reviewed the chart and agree that the record accurately reflects my personal performance of the history, physical exam, medical decision making, and the department course for this patient. I have also personally directed, reviewed, and agree with the discharge instructions and disposition. Disposition - Clinical Impression Clinical Impression: Bradycardia, Abnormal LFTs (liver function tests), Abdominal pain in female - Patient ED Disposition Is Patient to be Admitted: Yes Counseled Patient/Family Regarding: Studies Performed, Diagnosis - Disposition Disposition Time: 14:00 Condition: GOOD - Pt Status Changed To: Hospital Disposition Of: Inpatient - Admit Certification Admit to Inpatient:: After my assessment, the patient will require hospitalization for at least two midnights. This is because of the severity of symptoms shown, intensity of services needed, and/or the medical risk in this patient being treated as an outpatient. - POA Present On Arrival: None
[2017-02-07 14:33] LABS: BASO # 0.1 K/uL (0.0-0.2); BASO % 0.8 % (0.0-2.0); EOS # 0.1 K/uL (0.0-0.7); EOS % 1.7 % (0.0-4.0); HEMATOCRIT 34.7 % (34.0-47.0); LYMPH % 29.2 % (20.0-40.0); MEAN CELL VOLUME 85.1 fl (81.0-99.0); MEAN CORPUSCULAR HEMOGLOBIN 27.2 pg (27.0-31.0); MEAN PLATELET VOLUME 11.3 fl (7.2-11.7); MONO # 0.4 K/uL (0.0-0.8); MONO % 5.9 % (0.0-10.0); NEUT # 4.2 K/uL (1.8-7.0); NEUT % 62.4 % (50.0-75.0); NRBC % 0.1 % (0.0-0.0); RED CELL DISTRIBUTION WIDTH 15.7 % (11.5-14.5); WHITE BLOOD COUNT 6.7 K/uL (4.8-10.8)
[2017-02-07 14:54] LABS: ALB/GLOB RATIO 1.1 (1.0-2.1); ALKALINE PHOSPHATASE 87 U/L (38-126); ALT/SGPT 323 U/L (9-52); AST/SGOT 155 U/L (14-36); BILIRUBIN,TOTAL 0.3 mg/dl (0.2-1.3); BLOOD UREA NITROGEN 13 mg/dl (7-17); CARBON DIOXIDE 23 mmol/L (22-30); CHLORIDE 110 mmol/L (98-107); GFR AFRICAN-AMERICAN > 60; GLUCOSE,RANDOM 82 mg/dL (65-105); SODIUM 141 mmol/l (132-148); TOTAL PROTEIN 5.9 G/DL (6.3-8.2)
[2017-02-07 15:19] LABS: PARTIAL THROMBOPLASTIN TIME 27.6 Seconds (25.6-37.1)
[2017-02-07] MEDS ORDERED: Iohexol 300 100 ML IJ ONE (16:38)
[2017-02-07] MEDS ORDERED: Sodium Chloride 0.9% 50 ML IV ONE (16:38)
[2017-02-07] MEDS ORDERED: Hydrocortisone-Pramoxine(Proctofoam HC) EXT PRN (17:04)
--- NOTE | 2017-02-07 17:08 | CP.PCM.HP ---
<Compa Renee - Last Filed: 02/07/17 19:04> History of Present Illness - History of Present Illness History of Present Illness: 41 year old female who is presented to the emergency department with a complaint of abdominal pain, rectal pain x 1 day. Patient also states headache, dizziness, and moderate vaginal bleeding. Abdominal pain is diffuse and without alleviating/aggravating factors. No n/v. Not taking meds. Patient was found to have elevated blood pressure in ED. Patient is 5 days and had a without complications and went home on 02/04/17. Patient is currently breast- feeding and formula feeding. Denies history of hemorrhoids, hypertension, complications during /delivery, chest pain, sob, change of vision, fever, chills. No recent trauma, change in diet, or similar episodes in the past. No bruising. No brbpr, melena, diarrhea. PMD: SCC PMHx: Obesity Meds: None Allergies: NKDA Surgical history: Denies OBHx: # 1: 1995, normal spontaneous vaginal delivery (), no complications. # 2: 1996, normal spontaneous vaginal delivery () , Oligohydramnios . # 3 2000, normal spontaneous vaginal delivery (), Oligohydramnios. # 4: 2005, normal spontaneous vaginal delivery (), no complications. # 5: 2017, normal spontaneous vaginal delivery (), no complications. Family hx: Father: , at 80 Y/o with Pneumonia complication Mother: alive, HTN Son at age 9 due to Cerebral aneurism. Social hx: Denies etoh, drug, tobacco use. ED Course: Temp 98.3 F Pulse 50 Resp 18 BP 165/77 Pulse Ox 98 EKG: Sinus bradycardia at 47bpm PE: abdomen mild diffuse tenderness with firm uterus Labs: CBC, CMP, Troponin I, CMP, PT/PTT Meds:Tylenol 650 mg PO, Clonidine 0.2 mg PO Imaging:Head CT - IMPRESSION: No acute intracranial hemorrhage. Present on Admission - Present on Admission Any Indicators Present on Admission: No Review of Systems - Review of Systems Review of Systems: PER HPI Past Patient History - Infectious Disease Hx of Infectious Diseases: None - Past Medical History & Family History Past Medical History?: No - Past Social History Smoking Status: Never Smoked - CARDIAC Hx Hypertension: No - PULMONARY Hx Asthma: Yes - NEUROLOGICAL Hx Neurological Disorder: No - HEENT Hx HEENT Problems: No - RENAL Hx Chronic Kidney Disease: No - ENDOCRINE/METABOLIC Hx Endocrine Disorders: No - HEMATOLOGICAL/ONCOLOGICAL Hx Blood Disorders: No - INTEGUMENTARY Hx Dermatological Problems: No - MUSCULOSKELETAL/RHEUMATOLOGICAL Hx Musculoskeletal Disorders: No - GASTROINTESTINAL Hx Gastrointestinal Disorders: No - GENITOURINARY/GYNECOLOGICAL Hx Genitourinary Disorders: No - PSYCHIATRIC Hx Depression: No - SURGICAL HISTORY Hx Surgeries: Yes Other/Comment: RIGHT FOOT SURGERY - ANESTHESIA Hx Anesthesia: Yes Hx Anesthesia Reactions: No Meds Allergies/Adverse Reactions: Allergies Allergy/AdvReac Type Severity Reaction Status Date / Time No Known Allergies Allergy Verified 09/18/16 11:29 Physical Exam - Constitutional Appears: Non-toxic, Other (obese) - Head Exam Head Exam: ATRAUMATIC, NORMAL INSPECTION, NORMOCEPHALIC - Eye Exam Eye Exam: EOMI, Normal appearance Pupil Exam: PERRL - Neck Exam Neck exam: Positive for: Normal Inspection - Respiratory Exam Respiratory Exam: Clear to Auscultation Bilateral, NORMAL BREATHING PATTERN. absent: Rales, Wheezes - Cardiovascular Exam Cardiovascular Exam: Bradycardia, +S1, +S2 - GI/Abdominal Exam GI & Abdominal Exam: Normal Bowel Sounds, Soft, Tenderness (diffuse). absent: Guarding - Extremities Exam Extremities exam: Positive for: normal inspection. Negative for: calf tenderness, pedal edema - Back Exam Back exam: NORMAL INSPECTION. absent: CVA tenderness (L), CVA tenderness (R) - Neurological Exam Neurological exam: Alert, Oriented x3 - Psychiatric Exam Psychiatric exam: Normal Affect, Normal Mood - Skin Skin Exam: Dry, Intact, Normal Color, Warm Results - Vital Signs Recent Vital Signs: Last Vital Signs Temp 98.3 F 02/07/17 13:01 Pulse 34 L 02/07/17 16:18 Resp 18 02/07/17 15:20 BP 155/72 H 02/07/17 16:18 Pulse Ox 99 02/07/17 15:20 - Labs Result Diagrams: 02/07/17 14:19 02/07/17 14:19 - EKG Data EKG Interpreted by: ER Physician EKG shows normal: Sinus rhythm Rate: Bradycardia Assessment & Plan (1) Abdominal pain Status: Acute (2) Bradycardia Status: Acute (3) Hypertension Status: Acute (4) Elevated LFTs Status: Acute (5) Anemia Status: Chronic (6) DVT prophylaxis Status: Acute - Assessment and Plan (Free Text) Assessment: 41 year old female who is 5 days with abdominal pain/rectal pain x 1 day associated with headache and dizziness. Noted to have elevated BP, bradycardia, elevated LFTs. Plan: (1) Abdominal pain Elevated LFTs, Afebrile, no leukocytosis Abd ultrasound noted CT abdomen noted Surgery consulted for acalculous cholecystitis NPO Zosyn q6h Toradol prn pain IVF f/u blood cx (2) Bradycardia Low 40s on monitor No cp/sob/palpitations. EKG shows sinus ronald Cardiac monitoring Cardiology consulted, appreciate recommendations (3) Hypertension 133/78 after clonidine in ED Will continue to monitor in tele Consider Hydralazine if BP elevated OB consulted for abdominal pain/ htn preeclampsia? (4) Elevated LFTs AST/ALT: 155/323 Elevated from previous labs, reviewed. Imaging studies noted. (5) Anemia - Hgb 11.1 - No supplementation at this time, continue to monitor (6) DVT prophylaxis - SCDs <Angela Pope - Last Filed: 02/08/17 08:36> Physical Exam - Skin Additional comments: ADDENDUM ATTENDING NOTE CHART REVIEWED. CASE DISCUSSED AT LENGTH WITH RESIDENT. OB CONSULT DONE AND WILL FOLLOW. CARDIOLOGY CONSULT ORDERED WELL GENERAL SURGERY CONSULT. ZOSYN IV STARTED FOR CHOLECYSTITIS. AGREE WITH PLAN. Results - Vital Signs Recent Vital Signs: Last Vital Signs Temp 98.4 F 02/08/17 08:10 Pulse 45 L 02/08/17 08:10 Resp 18 02/08/17 08:10 BP 149/74 02/08/17 08:10 Pulse Ox 97 02/08/17 08:10 - Labs Result Diagrams: 02/08/17 06:00 02/07/17 14:19 Labs: Laboratory Results - last 24 hr 02/07/17 02/08/17 17:35 06:00 WBC 7.3 RBC 4.23 Hgb 11.5 L Hct 36.0 MCV 85.0 MCH 27.2 MCHC 32.0 L RDW 15.7 H Plt Count 195 Urine Color Yellow Urine Clarity Slighty-cloudy Urine pH 6.0 Ur Specific [place] 1.015 Urine Protein 30 Urine Glucose (UA) Neg Urine Ketones Negative Urine Blood Large Urine Nitrate Negative Urine Bilirubin Negative Urine Urobilinogen 0.2-1.0 Ur Leukocyte Esterase Mod Urine RBC (Auto) 233 H Urine Microscopic WBC 59 H Ur Squamous Epith Cells 5 Urine Bacteria Occ H Hyaline Casts 0-2
[2017-02-07] MEDS: Sodium Chloride 0.9% 1,000 ML IV SCH (17:39)
[2017-02-07 17:54] LABS: RBC URINE 233 /hpf (0-3); URINE BACTERIA OCC (<OCC); URINE BILIRUBIN NEGATIVE (NEGATIVE); URINE BLOOD LARGE (NEGATIVE); URINE COLOR YELLOW (YELLOW); URINE GLUCOSE (UA) NEG (Normal); URINE KETONE NEGATIVE (NEGATIVE); URINE LEUKOCYTE ESTERASE MOD Leu/uL (Negative); URINE PROTEIN 30 mg/dL (NEGATIVE); URINE UROBILINOGEN 0.2-1.0 mg/dL (0.2-1.0); WBC URINE 59 /hpf (0-5)
--- NOTE | 2017-02-07 18:02 | US ---
HISTORY: Abdominal pain the, elevated LFTs, COMPARISON: None. TECHNIQUE: Grayscale imaging was performed. FINDINGS: LIVER: Measures 21.9 cm. Normal echogenicity of the liver parenchyma. No mass. No intrahepatic bile duct dilatation. GALLBLADDER: There are no gallstones. There is diffuse thickening of the gallbladder wall which measures 1.3 cm. No pericholecystic fluid. The sonographic Maldonado's sign is positive. COMMON BILE DUCT: Measures 3.0 mm. No stones. No dilatation. PANCREAS: Unremarkable as visualized. No mass. No ductal dilatation. RIGHT KIDNEY: Measures 12.2cm. Normal echogenicity. No calculus, mass, or hydronephrosis. LEFT KIDNEY: Measures 11.3cm. Normal echogenicity. No calculus, mass, or hydronephrosis. SPLEEN: Normal in size and contour. No mass. AORTA: No aneurysmal dilatation. IVC: Unremarkable. OTHER FINDINGS: There is trace right pleural effusion. There is mild perihepatic ascites. IMPRESSION: 1. Findings are concerning for acute acalculous cholecystitis. 2. Small pleural effusion and right perihepatic ascites. 3. Mild hepatomegaly.
--- NOTE | 2017-02-07 18:15 | CT ---
PROCEDURE: CT Abdomen and Pelvis with contrast HISTORY: Abd pain, COMPARISON: Comparison is made to the previous study dated 03/24/2015 TECHNIQUE: Contrast dose: 95 mL of Omnipaque 300. Axial and reformatted coronal and sagittal CT images of the abdomen and pelvis were obtained after IV contrast administration. Radiation dose: Total exam DLP = 1007.3 mGy-cm. This CT exam was performed using one or more of the following dose reduction techniques: Automated exposure control, adjustment of the mA and/or kV according to patient size, and/or use of iterative reconstruction technique. FINDINGS: LOWER THORAX: There is a small right pleural effusion seen. There is also questionable trace left pleural effusion. LIVER: Interval appearance of 1.2 centimeter enhancing lesion at the right liver lobe image 61 series 3 since the previous exam. The possibility of neoplasm such as metastasis should be considered. Otherwise the liver demonstrate a mildly heterogeneous enhancement. The portal vein is patent. GALLBLADDER AND BILE DUCTS: UnremarkableThe gallbladder is distended. There is pericholecystic fluid seen. The biliary tree is not dilated. . PANCREAS: Unremarkable. No gross lesion or ductal dilatation. SPLEEN: Unremarkable. ADRENALS: Unremarkable. No mass. KIDNEYS AND URETERS: Unremarkable. No hydronephrosis. No solid mass. VASCULATURE: Unremarkable. No aortic aneurysm. BOWEL: Unremarkable. No obstruction. No gross mural thickening. APPENDIX: No evidence of appendicitis. PERITONEUM: There is interval appearance of small ascites in the abdomen since the previous exam. LYMPH NODES: Unremarkable. No enlarged lymph nodes. BLADDER: The urinary bladder is partially distended. REPRODUCTIVE: There is interval significant increase in the size of the uterus seen extending to the upper abdomen in this study. The uterus demonstrates heterogeneous enhancement. The possibility of neoplasm should be excluded. The differential diagnosis includes also acute hemorrhage in large fibroid. Further assessment of the uterus is recommended. The adnexa are not well visualized in this study. BONES: No acute fracture. OTHER FINDINGS: None. IMPRESSION: Interval appearance of small right pleural effusion. 1.2 centimeter enhancing nodule seen at the right liver lobe new compared to the previous exam. The possibility of malignant neoplasm such as metastasis should be excluded. Interval appearance of small ascites in the abdomen. Pericholecystic fluid which could be due to new ascites. If clinically warranted further assessment of the gallbladder by ultrasound may be obtained. Interval markedly increase in the size of the uterus since the previous exam. The possibility of neoplasm in the uterus should be excluded. Further assessment is recommended.
--- NOTE | 2017-02-07 18:38 | RAD ---
HISTORY: COMPARISON: Upper TECHNIQUE: Chest PA and lateral FINDINGS: LINES AND TUBES: None. LUNG AND PLEURA: There is confluent airspace disease in both lower lobes, worse on the right. HEART AND MEDIASTINUM: The heart is not enlarged. The hilar and mediastinal contours are within normal limits. SKELETAL STRUCTURES: The bony structures are within normal limits for the patient's age. VISUALIZED UPPER ABDOMEN: Normal. OTHER FINDINGS: None. IMPRESSION: Confluent airspace disease in the lower lobes, worse on the right could represent pneumonia. Follow-up is recommended to ensure resolution.
--- NOTE | 2017-02-07 19:02 | CP.PCM.CON ---
History of Present Illness - History of Present Illness History of Present Illness: General Surgery Consult Note for Dr. Rico Reason for Consult: Abdominal pain, possible acalculous cholecystitis 41 F with PMH of anemia presents with complaint of abdominal pain. Patient states that she has had the pain for 1 day. It started while resting at home. Patient gave to 5th child five days ago. She had a without any complications. She states she has never had pain like this in the past. She rates pain 4/10 currently, earlier it was worse. She describes it as constant and sharp located in periumbilical region. Denies alleviating or exacerbating factors. Denies fever/chills, cp, sob, n/v/d, constipation, incontinence. PMD: [facility] PMH: Anemia Meds: Iron, tylenol Allergies: NKDA PSH: Denies FH: Father - due to Pneumonia , Mother - HTN Social: Denies tobacco/etoh/illicit drug use Review of Systems - Review of Systems All systems: reviewed and no additional remarkable complaints except (abdominal pain, vaginal bleeding, headache) Past Patient History - Infectious Disease Hx of Infectious Diseases: None - Past Medical History & Family History Past Medical History?: No - Past Social History Smoking Status: Never Smoked - CARDIAC Hx Hypertension: No - PULMONARY Hx Asthma: Yes - NEUROLOGICAL Hx Neurological Disorder: No - HEENT Hx HEENT Problems: No - RENAL Hx Chronic Kidney Disease: No - ENDOCRINE/METABOLIC Hx Endocrine Disorders: No - HEMATOLOGICAL/ONCOLOGICAL Hx Blood Disorders: No - INTEGUMENTARY Hx Dermatological Problems: No - MUSCULOSKELETAL/RHEUMATOLOGICAL Hx Musculoskeletal Disorders: No - GASTROINTESTINAL Hx Gastrointestinal Disorders: No - GENITOURINARY/GYNECOLOGICAL Hx Genitourinary Disorders: No - PSYCHIATRIC Hx Depression: No - SURGICAL HISTORY Hx Surgeries: Yes Other/Comment: RIGHT FOOT SURGERY - ANESTHESIA Hx Anesthesia: Yes Hx Anesthesia Reactions: No Meds Allergies/Adverse Reactions: Allergies Allergy/AdvReac Type Severity Reaction Status Date / Time No Known Allergies Allergy Verified 09/18/16 11:29 - Medications Medications: Current Medications Hydrocortisone/Pramoxine (Proctofoam) 1 applic EXT Q8 PRN PRN Reason: Hemorrhoids Sodium Chloride (Sodium Chloride 0.9%) 1,000 mls @ 100 mls/hr IV .Q10H KAYLEIGH Last Admin: 02/07/17 17:39 Dose: 100 mls/hr Ketorolac Tromethamine (Toradol) 30 mg IVP Q6 PRN PRN Reason: Pain, moderate (4-7) Last Admin: 02/07/17 18:51 Dose: 30 mg Physical Exam - Constitutional Appears: No Acute Distress - Head Exam Head Exam: ATRAUMATIC, NORMOCEPHALIC - Eye Exam Eye Exam: Normal appearance - ENT Exam ENT Exam: Mucous Membranes Moist - Neck Exam Neck exam: Positive for: Full Rom - Respiratory Exam Respiratory Exam: NORMAL BREATHING PATTERN - Cardiovascular Exam Cardiovascular Exam: Bradycardia - GI/Abdominal Exam GI & Abdominal Exam: Soft, Tenderness (periumbilical). absent: Distended, Firm , Guarding, Rebound, Rigid Additional comments: (-) gray's sign - Extremities Exam Extremities exam: Positive for: pedal pulses present. Negative for: calf tenderness - Back Exam Back exam: absent: CVA tenderness (L), CVA tenderness (R) - Neurological Exam Neurological exam: Alert, CN II-XII Intact, Oriented x3 - Skin Skin Exam: Dry, Intact, Normal Color, Warm Results - Vital Signs Recent Vital Signs: Last Vital Signs Temp 98.3 F 02/07/17 13:01 Pulse 39 L 02/07/17 18:05 Resp 18 02/07/17 15:20 BP 148/76 02/07/17 18:05 Pulse Ox 99 02/07/17 15:20 - Labs Result Diagrams: 02/08/17 06:00 02/08/17 06:00 Labs: Laboratory Results - last 24 hr 02/07/17 17:35 Urine Color Yellow Urine Clarity Slighty-cloudy Urine pH 6.0 Ur Specific [place] 1.015 Urine Protein 30 Urine Glucose (UA) Neg Urine Ketones Negative Urine Blood Large Urine Nitrate Negative Urine Bilirubin Negative Urine Urobilinogen 0.2-1.0 Ur Leukocyte Esterase Mod Urine RBC (Auto) 233 H Urine Microscopic WBC 59 H Ur Squamous Epith Cells 5 Urine Bacteria Occ H Hyaline Casts 0-2 Assessment & Plan - Assessment and Plan (Free Text) Plan: 41 F with PMH of anemia with of abdominal pain -CT abdomen/pelvis: Interval appearance of small right pleural effusion. 1.2 centimeter enhancing nodule seen at the right liver lobe new compared to the previous exam. Interval appearance of small ascites in the abdomen. Pericholecystic fluid which could be due to new ascites. Interval markedly increase in the size of the uterus since the previous exam (see full report) -ABUS: Findings are concerning for acute acalculous cholecystitis. Small pleural effusion and right perihepatic ascites. Mild hepatomegaly (see full report) -Pain control -Management as per primary -No surgical intervention at this time -KRISTY Kearney PGY1
--- NOTE | 2017-02-07 19:44 | CARD ---
APPROVED REPORT EKG Measurement Heart [id number] <Conclusion> Sinus bradycardia Otherwise normal ECG
--- NOTE | 2017-02-07 20:06 | CP.PCM.CON ---
History of Present Illness - History of Present Illness History of Present Illness: OBGYN consult note. 41 y/o F , s/p PPD#5, d/c from OB on 02/04/17 comes to ED c/o constant diffuse Abdominal pain since yesterday. pain is 10/10 in severity, activities make it worse, took tylenol at home which helped little. pt denies any nausea, vomiting, or brbpr. Pt was discharged PP with Iron, Colace and Ibuprofen. PMD: NHC PMH: none NKDA Meds: iron, colace PSH: none POBH: , 5xNSVD SH: no alcohol, smoking or illicit drug use FH: Mom with HTN Review of Systems - Constitutional Constitutional: As Per HPI Past Patient History - Infectious Disease Hx of Infectious Diseases: None - Past Medical History & Family History Past Medical History?: No - Past Social History Smoking Status: Never Smoked - CARDIAC Hx Hypertension: No - PULMONARY Hx Asthma: Yes - NEUROLOGICAL Hx Neurological Disorder: No - HEENT Hx HEENT Problems: No - RENAL Hx Chronic Kidney Disease: No - ENDOCRINE/METABOLIC Hx Endocrine Disorders: No - HEMATOLOGICAL/ONCOLOGICAL Hx Blood Disorders: No - INTEGUMENTARY Hx Dermatological Problems: No - MUSCULOSKELETAL/RHEUMATOLOGICAL Hx Musculoskeletal Disorders: No - GASTROINTESTINAL Hx Gastrointestinal Disorders: No - GENITOURINARY/GYNECOLOGICAL Hx Genitourinary Disorders: No - PSYCHIATRIC Hx Depression: No - SURGICAL HISTORY Hx Surgeries: Yes Other/Comment: RIGHT FOOT SURGERY - ANESTHESIA Hx Anesthesia: Yes Hx Anesthesia Reactions: No Meds Allergies/Adverse Reactions: Allergies Allergy/AdvReac Type Severity Reaction Status Date / Time No Known Allergies Allergy Verified 09/18/16 11:29 - Medications Medications: Current Medications Hydrocortisone/Pramoxine (Proctofoam) 1 applic EXT Q8 PRN PRN Reason: Hemorrhoids Sodium Chloride (Sodium Chloride 0.9%) 1,000 mls @ 100 mls/hr IV .Q10H [facility] Last Admin: 02/07/17 17:39 Dose: 100 mls/hr Piperacillin Sod/Tazobactam (Sod 3.375 gm/ Sodium Chloride) 100 mls @ 100 mls/ hr IVPB Q6 [facility] Ketorolac Tromethamine (Toradol) 30 mg IVP Q6 PRN PRN Reason: Pain, moderate (4-7) Last Admin: 02/07/17 18:51 Dose: 30 mg Physical Exam - Constitutional Appears: Non-toxic, No Acute Distress - Head Exam Head Exam: ATRAUMATIC, NORMAL INSPECTION, NORMOCEPHALIC - Eye Exam Eye Exam: EOMI, Normal appearance, PERRL Pupil Exam: PERRL - ENT Exam ENT Exam: Mucous Membranes Moist - Neck Exam Neck exam: Positive for: Full Rom - Respiratory Exam Respiratory Exam: Clear to Auscultation Bilateral, NORMAL BREATHING PATTERN. absent: Accessory Muscle Use, Chest Wall Tenderness - Cardiovascular Exam Cardiovascular Exam: REGULAR RHYTHM, +S1, +S2 - GI/Abdominal Exam GI & Abdominal Exam: Normal Bowel Sounds, Soft, Tenderness. absent: Guarding - Extremities Exam Extremities exam: Positive for: normal inspection. Negative for: calf tenderness, pedal edema - Back Exam Back exam: absent: CVA tenderness (L), CVA tenderness (R) - Neurological Exam Neurological exam: Alert, Oriented x3 - Skin Skin Exam: Dry, Intact, Normal Color Results - Vital Signs Recent Vital Signs: Last Vital Signs Temp 98.2 F 02/07/17 18:45 Pulse 36 L 02/07/17 18:45 Resp 17 02/07/17 18:45 BP 155/83 H 02/07/17 18:45 Pulse Ox 99 02/07/17 18:45 - Labs Result Diagrams: 02/07/17 14:19 02/07/17 14:19 Labs: Laboratory Results - last 24 hr 02/07/17 17:35 Urine Color Yellow Urine Clarity Slighty-cloudy Urine pH 6.0 Ur Specific Hammond 1.015 Urine Protein 30 Urine Glucose (UA) Neg Urine Ketones Negative Urine Blood Large Urine Nitrate Negative Urine Bilirubin Negative Urine Urobilinogen 0.2-1.0 Ur Leukocyte Esterase Mod Urine RBC (Auto) 233 H Urine Microscopic WBC 59 H Ur Squamous Epith Cells 5 Urine Bacteria Occ H Hyaline Casts 0-2 Assessment & Plan - Assessment and Plan (Free Text) Assessment: A/P:: 41 y/o F , s/p PPD#5, d/c from OB on 02/04/17 comes to ED c/o constant diffuse Abdominal pain since yesterday. - CT abdomen/pelvis: Interval appearance of small right pleural effusion. 1.2 centimeter enhancing nodule seen at the right liver lobe new compared to the previous exam. Interval appearance of small ascites in the abdomen. Pericholecystic fluid which could be due to new ascites. Interval markedly increase in the size of the uterus since the previous exam - Abdo U/S: Acalculous Cholecystits- f/u Surgery recommendations - HTN and Bradycardia, ProBNP 458H- f/u Office Machine Mechanic recommendations - High LFTs, normal plt counts and No proteinuria - Primary care as per Medicine team Thank you for OBGYN consult, Case Discussed with Dr. Pabon PGY3 and Dr. Bernardo --- Trena Cristina, PGY-1
[2017-02-07] MEDS: Piperacillin/Tazobact 3.375 GM in Sodium Chloride 0.9% 100 ML IVPB SCH (21:13)
[2017-02-08] MEDS: Sodium Chloride 0.9% 1,000 ML IV SCH ×3 (03:00→22:33)
[2017-02-08] MEDS: Piperacillin/Tazobact 3.375 GM in Sodium Chloride 0.9% 100 ML IVPB SCH ×4 (04:35→21:19)
[2017-02-08 07:47] LABS: MEAN CORPUSCULAR HEMOGLOBIN 27.2 pg (27.0-31.0); RED CELL DISTRIBUTION WIDTH 15.7 % (11.5-14.5); WHITE BLOOD COUNT 7.3 K/uL (4.8-10.8)
[2017-02-08 09:01] LABS: ALKALINE PHOSPHATASE 85 U/L (38-126); ALT/SGPT 365 U/L (9-52); AST/SGOT 178 U/L (14-36); BILIRUBIN,TOTAL 0.4 mg/dl (0.2-1.3); BLOOD UREA NITROGEN 14 mg/dl (7-17); CALCIUM 8.8 mg/dL (8.4-10.2); CARBON DIOXIDE 24 mmol/L (22-30); CHLORIDE 111 mmol/L (98-107); GFR AFRICAN-AMERICAN > 60; GLUCOSE,RANDOM 82 mg/dL (65-105); POTASSIUM 3.8 MMOL/L (3.6-5.0); SODIUM 142 mmol/l (132-148); TOTAL PROTEIN 5.6 G/DL (6.3-8.2)
--- NOTE | 2017-02-08 09:21 | CP.PCM.PN ---
Subjective - Date & Time of Evaluation Date of Evaluation: 02/08/17 Time of Evaluation: 09:19 - Subjective Subjective: Surgery: Dr. Rico Pt seen and examined. Resting comfortably in bed. Pt states that pain is unchanged from yesterday. She denies N/V/D. No F/C. Objective - Vital Signs/Intake and Output Vital Signs (last 24 hours): Temp Pulse Resp BP Pulse Ox 98.4 F 45 L 18 149/74 97 02/08/17 08:10 02/08/17 08:10 02/08/17 08:10 02/08/17 08:10 02/08/17 08:10 - Medications Medications: Current Medications Hydrocortisone/Pramoxine (Proctofoam) 1 applic EXT Q8 PRN PRN Reason: Hemorrhoids Sodium Chloride (Sodium Chloride 0.9%) 1,000 mls @ 100 mls/hr IV .Q10H [facility] Last Admin: 02/08/17 03:00 Dose: 100 mls/hr Piperacillin Sod/Tazobactam (Sod 3.375 gm/ Sodium Chloride) 100 mls @ 100 mls/ hr IVPB Q6 [facility] Last Admin: 02/08/17 04:35 Dose: 100 mls/hr Ketorolac Tromethamine (Toradol) 30 mg IVP Q6 PRN PRN Reason: Pain, moderate (4-7) Last Admin: 02/07/17 18:51 Dose: 30 mg - Labs Labs: 02/08/17 06:00 02/08/17 06:00 PT 10.2 Seconds (9.8-13.1) 02/07/17 14:19 INR 1.0 (0.9-1.2) 02/07/17 14:19 APTT 27.6 Seconds (25.6-37.1) 02/07/17 14:19 - Constitutional Appears: Non-toxic, No Acute Distress - Head Exam Head Exam: ATRAUMATIC, NORMOCEPHALIC - Eye Exam Eye Exam: EOMI - ENT Exam ENT Exam: Mucous Membranes Moist - Neck Exam Neck Exam: Full ROM - Respiratory Exam Respiratory Exam: NORMAL BREATHING PATTERN. absent: Accessory Muscle Use, Respiratory Distress - GI/Abdominal Exam GI & Abdominal Exam: Soft, Tenderness (epigastric/RUQ). absent: Distended, Firm , Guarding, Rigid, Rebound - Extremities Exam Extremities Exam: absent: Calf Tenderness, Pedal Edema - Neurological Exam Neurological Exam: Alert, Awake, Oriented x3 - Psychiatric Exam Psychiatric exam: Normal Affect, Normal Mood Assessment and Plan - Assessment and Plan (Free Text) Assessment: 41F w. abd pain and transaminitis, r/o cholecystitis -will start low fat diet -HIDA scan ordered -hep panel ordered -c/w abx -serial abd exam -d/w attending Zemaitis PGY3
[2017-02-08 09:25] LABS: THYROID STIMULATING HORMONE 1.59 mIU/ML (0.46-4.68)
[2017-02-08] MEDS ORDERED: Magnesium Sul 40GM/1L SW 40 GM/1,000 ML ML IV ONE (09:40)
--- NOTE | 2017-02-08 10:20 | CP.PCM.PN ---
<Heidy Wolff - Last Filed: 02/08/17 11:13> Subjective - Date & Time of Evaluation Date of Evaluation: 02/08/17 Time of Evaluation: 10:16 - Subjective Subjective: [employer]ACLE APPLICATION CONSULTANT Note S: Patient is seen and examined by bedside. No acute overnight events. Patient was seen ambulating to and from the bathroom without any difficulties. Pt states that she feels better then last night, but the pain in her abdomen is still there. She rates the pain this morning as a 8/10, and that the pain medications are helping with the pain. The pain is located throughout the abdomen, but worst in the epigastria. Denies headache, blurry vision, diplopia, dizziness, n/v/d/c, chest pain, dyspnea. Objective - Vital Signs/Intake and Output Vital Signs (last 24 hours): Temp Pulse Resp BP Pulse Ox 98.4 F 45 L 18 149/74 97 02/08/17 08:10 02/08/17 08:10 02/08/17 08:10 02/08/17 08:10 02/08/17 08:10 - Medications Medications: Current Medications Heparin Sodium (Porcine) (Heparin) 5,000 units SC Q12 [facility] PRN Reason: Protocol Hydrocortisone/Pramoxine (Proctofoam) 1 applic EXT Q8 PRN PRN Reason: Hemorrhoids Sodium Chloride (Sodium Chloride 0.9%) 1,000 mls @ 100 mls/hr IV .Q10H [facility] Last Admin: 02/08/17 03:00 Dose: 100 mls/hr Piperacillin Sod/Tazobactam (Sod 3.375 gm/ Sodium Chloride) 100 mls @ 100 mls/ hr IVPB Q6 [facility] Last Admin: 02/08/17 09:26 Dose: 100 mls/hr Magnesium Sulfate (Magnesium Sul 40gm/1l Sw) 40 gm in 1,000 mls @ 41.667 mls/ hr IV .Q24H ONE Stop: 02/09/17 09:39 Ketorolac Tromethamine (Toradol) 30 mg IVP Q6 PRN PRN Reason: Pain, moderate (4-7) Last Admin: 02/08/17 09:28 Dose: 30 mg - Labs Labs: 02/08/17 06:00 02/08/17 06:00 PT 10.2 Seconds (9.8-13.1) 02/07/17 14:19 INR 1.0 (0.9-1.2) 02/07/17 14:19 APTT 27.6 Seconds (25.6-37.1) 02/07/17 14:19 - Constitutional Appears: Non-toxic, No Acute Distress - Head Exam Head Exam: ATRAUMATIC, NORMOCEPHALIC - Eye Exam Eye Exam: EOMI, Normal appearance. absent: Scleral icterus - ENT Exam ENT Exam: Mucous Membranes Moist - Neck Exam Neck Exam: Full ROM. absent: Lymphadenopathy - Respiratory Exam Respiratory Exam: Clear to Ausculation Bilateral, NORMAL BREATHING PATTERN - Cardiovascular Exam Cardiovascular Exam: Bradycardia, REGULAR RHYTHM, +S1, +S2. absent: Murmur - GI/Abdominal Exam GI & Abdominal Exam: Soft, Tenderness, Normal Bowel Sounds. absent: Distended, Guarding Additional comments: Pt is most tender in the epigastria and in RUQ, and mild tenderness in the LUQ and in the lower quadrants. Maldonado sign positive. Rebound tenderness neg. - Extremities Exam Extremities Exam: Full ROM. absent: Calf Tenderness, Pedal Edema, Tenderness - Neurological Exam Neurological Exam: Alert, Awake, CN II-XII Intact, Normal Gait, Oriented x3 - Psychiatric Exam Psychiatric exam: Normal Affect, Normal Mood - Skin Skin Exam: Intact, Normal Color, Warm Assessment and Plan - Assessment and Plan (Free Text) Assessment: Assessment/Plan: 41 y/o Female , s/p PPD#6, d/c from OB on 02/04/17 comes to ED for diffuse Abdominal pain. Pain improved since admission. - Pt evaluated for HEELP syndrome; unlikely. Pt currently asymptomatic, High LFTs, normal plt counts and No proteinuria - Start pt on Magnesium sulfate 40gm IV, will reevaluate tomorrow and d/c Mg after 24 hrs. - CT abdomen/pelvis: Interval appearance of small ascites in the abdomen. Pericholecystic fluid which could be due to new ascites. Interval markedly increase in the size of the uterus since the previous exam - Abdo U/S: Acalculous Cholecystits- Surgery following case, no surgical intervention at this time. HIDA scan ordered. Will follow. - HTN and Bradycardia, ProBNP 458H- f/u Kettle Coordinator recommendations - Primary care as per Medicine team Thank you for OBGYN consult, Heidy Wolff, PGY I Case Discussed with Dr. Bernardo and Dr. Madison <Hero Madison S - Last Filed: 02/08/17 13:53> Subjective - Subjective Subjective: OBH ADDENDUM: Pt seen and examined by me. Agree with above assessment and plan with following clarifications and modifications. Patient describes her headache as bitermporal the nighttime and states it has now resolved with the pain medication. She denies painful menstrual type cramps or uterine contractions and denies heavy vaginal bleeding. She denies nausea or vomiting; eating spicy food or fried food. Objective - Vital Signs/Intake and Output Vital Signs (last 24 hours): Temp Pulse Resp BP Pulse Ox 98 F 39 L 18 150/78 97 02/08/17 12:45 02/08/17 12:45 02/08/17 12:45 02/08/17 12:45 02/08/17 12:45 - Medications Medications: Current Medications Heparin Sodium (Porcine) (Heparin) 5,000 units SC Q12 [facility] PRN Reason: Protocol Last Admin: 02/08/17 10:34 Dose: 5,000 units Hydrocortisone/Pramoxine (Proctofoam) 1 applic EXT Q8 PRN PRN Reason: Hemorrhoids Sodium Chloride (Sodium Chloride 0.9%) 1,000 mls @ 100 mls/hr IV .Q10H [facility] Last Admin: 02/08/17 03:00 Dose: 100 mls/hr Piperacillin Sod/Tazobactam (Sod 3.375 gm/ Sodium Chloride) 100 mls @ 100 mls/ hr IVPB Q6 [facility] Last Admin: 02/08/17 09:26 Dose: 100 mls/hr Magnesium Sulfate (Magnesium Sul 40gm/1l Sw) 40 gm in 1,000 mls @ 41.667 mls/ hr IV .Q24H ONE Stop: 02/09/17 09:39 Last Admin: 02/08/17 10:33 Dose: 41.667 mls/hr Ketorolac Tromethamine (Toradol) 30 mg IVP Q6 PRN PRN Reason: Pain, moderate (4-7) Last Admin: 02/08/17 09:28 Dose: 30 mg - Labs Labs: 02/08/17 06:00 02/08/17 06:00 PT 10.2 Seconds (9.8-13.1) 02/07/17 14:19 INR 1.0 (0.9-1.2) 02/07/17 14:19 APTT 27.6 Seconds (25.6-37.1) 02/07/17 14:19 - GI/Abdominal Exam Additional comments: Physical exam significant for: ABD: marked abdominal tenderness and mid epigastric and right upper quadrant region to light palpation; Uterus: 3 fingerbreadths below the umbilicus and firm, non-tender - Additional Findings Additional findings: Urine analysis: Shows trace protein most likely secondary to RBCs in urine consistent with course Assessment and Plan - Assessment and Plan (Free Text) Assessment: Current CT finding of uterus consistent consistent with status. Prior CT scan in in March 2015 patient was not . Review of delivery record. She has initial blood pressures as high as 140s to 150s over 80s to 90 prior to receiving her epidural. Following placement of epidural systolic blood pressures were in the low 100s occasionally to 130 with diastolics in the 70- 80s. patient's pulse during her intrapartum time was in the low 100s and was primarily in the 60s to 70s..
--- NOTE | 2017-02-08 11:31 | CP.PCM.PN ---
<Compa Renee - Last Filed: 02/08/17 11:27> Subjective - Date & Time of Evaluation Date of Evaluation: 02/08/17 Time of Evaluation: 10:27 - Subjective Subjective: Patient seen and examined at bedside. No acute events overnight. Continues to be bradycardic with HRs of high 30s low 40s. Continues to denies any symptoms including dizziness, palpitations, chest pain, sob, or headache. Patient states abdominal pain is still present with minimal improvement. More localized today of epigastrum/RUQ. Patient states no appetite at this time. No fever, chills. Seen by surgery and obgyn. Currently pump & dump. Formula feeding at this time. Objective - Vital Signs/Intake and Output Vital Signs (last 24 hours): Temp Pulse Resp BP Pulse Ox 98.4 F 45 L 18 149/74 97 02/08/17 08:10 02/08/17 08:10 02/08/17 08:10 02/08/17 08:10 02/08/17 08:10 - Medications Medications: Current Medications Heparin Sodium (Porcine) (Heparin) 5,000 units SC Q12 [facility] PRN Reason: Protocol Last Admin: 02/08/17 10:34 Dose: 5,000 units Hydrocortisone/Pramoxine (Proctofoam) 1 applic EXT Q8 PRN PRN Reason: Hemorrhoids Sodium Chloride (Sodium Chloride 0.9%) 1,000 mls @ 100 mls/hr IV .Q10H [facility] Last Admin: 02/08/17 03:00 Dose: 100 mls/hr Piperacillin Sod/Tazobactam (Sod 3.375 gm/ Sodium Chloride) 100 mls @ 100 mls/ hr IVPB Q6 [facility] Last Admin: 02/08/17 09:26 Dose: 100 mls/hr Magnesium Sulfate (Magnesium Sul 40gm/1l Sw) 40 gm in 1,000 mls @ 41.667 mls/ hr IV .Q24H ONE Stop: 02/09/17 09:39 Last Admin: 02/08/17 10:33 Dose: 41.667 mls/hr Ketorolac Tromethamine (Toradol) 30 mg IVP Q6 PRN PRN Reason: Pain, moderate (4-7) Last Admin: 02/08/17 09:28 Dose: 30 mg - Labs Labs: 02/08/17 06:00 02/08/17 06:00 PT 10.2 Seconds (9.8-13.1) 02/07/17 14:19 INR 1.0 (0.9-1.2) 02/07/17 14:19 APTT 27.6 Seconds (25.6-37.1) 02/07/17 14:19 - Constitutional Appears: Well, Non-toxic, No Acute Distress - Head Exam Head Exam: ATRAUMATIC, NORMAL INSPECTION, NORMOCEPHALIC - Eye Exam Eye Exam: Normal appearance - Respiratory Exam Respiratory Exam: Clear to Ausculation Bilateral, NORMAL BREATHING PATTERN. absent: Decreased Breath Sounds, Wheezes, Respiratory Distress - Cardiovascular Exam Cardiovascular Exam: Bradycardia, +S1, +S2 - GI/Abdominal Exam GI & Abdominal Exam: Soft, Tenderness (epigastric/ruq), Normal Bowel Sounds - Extremities Exam Extremities Exam: Normal Inspection. absent: Pedal Edema - Neurological Exam Neurological Exam: Alert, Awake, Oriented x3 - Psychiatric Exam Psychiatric exam: Normal Affect, Normal Mood - Skin Skin Exam: Dry, Intact, Normal Color, Warm Assessment and Plan (1) Abdominal pain Status: Acute (2) Bradycardia Status: Acute (3) Hypertension Status: Acute (4) Elevated LFTs Status: Acute (5) Anemia Status: Chronic (6) DVT prophylaxis Status: Acute - Assessment and Plan (Free Text) Assessment: 41 year old female who is 5 days with abdominal pain x 1 day. Bradycardia. Findings of possible acalculous cholecystitis. Vitals stable. Pain with minimal improvement Plan: (1) Abdominal pain Elevated LFTs, Afebrile, no leukocytosis Abd ultrasound noted CT abdomen noted Surgery consulted for acalculous cholecystitis HIDA scan ordered NPO c/w Zosyn q6h Toradol prn pain IVF f/u blood cx (2) Bradycardia Low 40s on monitor No cp/sob/palpitations. EKG shows sinus ronald Cardiac monitoring Cardiology consulted, appreciate recommendations (3) Hypertension - stable Stable, mildly elevated, asymptomatic Will continue to monitor in tele Consider Hydralazine if BP elevated OB consulted for abdominal pain/ htn preeclampsia? Recommends Mg 40 IV dc in 24hrs (4) Elevated LFTs AST/ALT: 178/365 (slowly trending up) Imaging studies noted. (5) Anemia - stable - Hgb 11.5 - No supplementation at this time, continue to monitor (6) DVT prophylaxis - Heparin <Angela Pope - Last Filed: 02/09/17 09:14> Objective - Vital Signs/Intake and Output Vital Signs (last 24 hours): Temp Pulse Resp BP Pulse Ox 98 F 60 18 112/62 98 02/09/17 08:13 02/09/17 08:13 02/09/17 08:13 02/09/17 08:13 02/09/17 08:13 - Medications Medications: Current Medications Docusate Sodium (Colace) 200 mg PO DAILY [facility] Heparin Sodium (Porcine) (Heparin) 5,000 units SC Q12 [facility] PRN Reason: Protocol Last Admin: 02/09/17 08:33 Dose: 5,000 units Hydrocortisone/Pramoxine (Proctofoam) 1 applic EXT Q8 PRN PRN Reason: Hemorrhoids Sodium Chloride (Sodium Chloride 0.9%) 1,000 mls @ 100 mls/hr IV .Q10H [facility] Last Admin: 02/08/17 22:33 Dose: Not Given Piperacillin Sod/Tazobactam (Sod 3.375 gm/ Sodium Chloride) 100 mls @ 100 mls/ hr IVPB Q6 [facility] Last Admin: 02/09/17 03:43 Dose: 100 mls/hr Magnesium Sulfate (Magnesium Sul 40gm/1l Sw) 40 gm in 1,000 mls @ 41.667 mls/ hr IV .Q24H ONE Stop: 02/09/17 09:39 Last Admin: 02/08/17 10:33 Dose: 41.667 mls/hr Ketorolac Tromethamine (Toradol) 30 mg IVP Q6 PRN PRN Reason: Pain, moderate (4-7) Last Admin: 02/09/17 08:40 Dose: 30 mg Multivit/Folic Acid/Iron () 1 tab PO DAILY [facility] - Labs Labs: 02/09/17 05:30 02/09/17 05:30 PT 10.2 Seconds (9.8-13.1) 02/07/17 14:19 INR 1.0 (0.9-1.2) 02/07/17 14:19 APTT 27.6 Seconds (25.6-37.1) 02/07/17 14:19 - Skin Additional comments: ADDENDUM ATTENDING NOTE PATIENT SEEN AND EXAMINED. CASE DISCUSSED WITH RESIDENT. AGREE WITH FINDINGS AND PLAN. HIDA SCAN ORDERED. CARDIO. CONSULT.
--- NOTE | 2017-02-08 23:12 | CON ---
HISTORY OF PRESENT ILLNESS: The patient is a 41-year-old female who has no significant past medical history who gave to her 5th child 6 days ago at the [facility], was discharged after 2 days, and presented because of epigastric discomfort. The patient denies any fevers or chills and no foul uterine discharge. The patient denies any palpitations and is not aware of any dizziness. The patient has no prior history of cardiac problems. The patient was noted to be bradycardic in the 40s. SOCIAL HISTORY: The patient is nonsmoker, nondrinker. MEDICATIONS: Subcutaneous heparin 5000 units twice a day, intravenous magnesium sulfate, Zosyn 3.375 g intravenously q.6 hours, normal saline 100 mL an hour, and Toradol 30 mg intravenously q.6 hours p.r.n. PHYSICAL EXAMINATION: GENERAL: The patient is a middle-aged female who does not appear to be in any distress. VITAL SIGNS: Blood pressure 149/74, heart rate 45, temperature 98.4. The slowest reported heart rate was 35. HEENT: Normocephalic. NECK: No JVD. CHEST: Clear. HEART: S1 and S2 regular. ABDOMEN: Mild epigastric tenderness. EXTREMITIES: No edema or calf tenderness. LABORATORY DATA: SMA-7 is within normal limits except for chloride of 111. AST and ALT are 178 and 365 respectively. Pro-BNP is 458. Albumin is 2.8, total protein is 5.6, both are below normal. TSH level is within normal limits at 1.59. PT, PTT, and INR are within normal limits. EKG reveals sinus bradycardia at a rate of 47. Abdomen and pelvis CT scan revealed small right pleural effusion. A 1.2 cm enhancing nodule seen at the right liver lobe, possibility of malignant neoplasm such as metastasis should be excluded. Small ascites in the abdomen, pericholecystic fluid. Interval markedly increase in the size of the uterus and possibility of neoplasm in the uterus should be excluded; however, the patient is 6 days . ASSESSMENT: 1. Sinus bradycardia. 2. Rule out underlying sepsis. 3. Liver nodule, rule out underlying malignancy. 4. Small right pleural effusion. RECOMMENDATIONS: Continue intravenous Zosyn 3.375 g q.6 hours. Continue subcutaneous heparin and normal saline infusion. Continue telemetry monitoring. No temporary or permanent pacemaker are needed so far unless heart rate is below 35 or the patient is symptomatic. Obtain an echocardiogram, lupus markers, rheumatoid arthritis panel, and D-dimer. Nabil Donald MD
[2017-02-09] MEDS: Piperacillin/Tazobact 3.375 GM in Sodium Chloride 0.9% 100 ML IVPB SCH ×4 (03:43→21:40)
[2017-02-09 07:02] LABS: HEMATOCRIT 34.9 % (34.0-47.0); MEAN CELL VOLUME 84.5 fl (81.0-99.0); MEAN CORPUSCULAR HEMOGLOBIN 27.6 pg (27.0-31.0); MEAN CORPUSCULAR HGB CONC 32.7 g/dL (33.0-37.0); RED CELL DISTRIBUTION WIDTH 15.5 % (11.5-14.5); WHITE BLOOD COUNT 5.8 K/uL (4.8-10.8)
[2017-02-09 07:18] LABS: ALKALINE PHOSPHATASE 98 U/L (38-126); ALT/SGPT 448 U/L (9-52); AST/SGOT 182 U/L (14-36); BILIRUBIN,TOTAL 0.4 mg/dl (0.2-1.3); BLOOD UREA NITROGEN 10 mg/dl (7-17); CALCIUM 7.1 mg/dL (8.4-10.2); CARBON DIOXIDE 23 mmol/L (22-30); CHLORIDE 106 mmol/L (98-107); GFR AFRICAN-AMERICAN > 60; GLUCOSE,RANDOM 90 mg/dL (65-105); POTASSIUM 3.9 MMOL/L (3.6-5.0); SODIUM 136 mmol/l (132-148); TOTAL PROTEIN 5.9 G/DL (6.3-8.2)
--- NOTE | 2017-02-09 08:16 | CP.PCM.PN ---
Subjective - Date & Time of Evaluation Date of Evaluation: 02/09/17 Time of Evaluation: 08:13 - Subjective Subjective: Surgery: Dr. Rico Pt seen and examined. Still has abd pain. Improved compared to yesterday. No N/V /D. No F/C. Objective - Vital Signs/Intake and Output Vital Signs (last 24 hours): Temp Pulse Resp BP Pulse Ox 98 F 60 18 112/62 98 02/09/17 08:13 02/09/17 08:13 02/09/17 08:13 02/09/17 08:13 02/09/17 08:13 - Medications Medications: Current Medications Heparin Sodium (Porcine) (Heparin) 5,000 units SC Q12 [facility] PRN Reason: Protocol Last Admin: 02/08/17 21:17 Dose: 5,000 units Hydrocortisone/Pramoxine (Proctofoam) 1 applic EXT Q8 PRN PRN Reason: Hemorrhoids Sodium Chloride (Sodium Chloride 0.9%) 1,000 mls @ 100 mls/hr IV .Q10H [facility] Last Admin: 02/08/17 22:33 Dose: Not Given Piperacillin Sod/Tazobactam (Sod 3.375 gm/ Sodium Chloride) 100 mls @ 100 mls/ hr IVPB Q6 [facility] Last Admin: 02/09/17 03:43 Dose: 100 mls/hr Magnesium Sulfate (Magnesium Sul 40gm/1l Sw) 40 gm in 1,000 mls @ 41.667 mls/ hr IV .Q24H ONE Stop: 02/09/17 09:39 Last Admin: 02/08/17 10:33 Dose: 41.667 mls/hr Ketorolac Tromethamine (Toradol) 30 mg IVP Q6 PRN PRN Reason: Pain, moderate (4-7) Last Admin: 02/09/17 02:15 Dose: 30 mg - Labs Labs: 02/09/17 05:30 02/09/17 05:30 PT 10.2 Seconds (9.8-13.1) 02/07/17 14:19 INR 1.0 (0.9-1.2) 02/07/17 14:19 APTT 27.6 Seconds (25.6-37.1) 02/07/17 14:19 - Constitutional Appears: Non-toxic, No Acute Distress - Head Exam Head Exam: ATRAUMATIC, NORMOCEPHALIC - Eye Exam Eye Exam: EOMI - ENT Exam ENT Exam: Mucous Membranes Moist, Normal External Ear Exam - Neck Exam Neck Exam: Full ROM - Respiratory Exam Respiratory Exam: NORMAL BREATHING PATTERN. absent: Accessory Muscle Use, Respiratory Distress - Cardiovascular Exam Cardiovascular Exam: REGULAR RHYTHM - GI/Abdominal Exam GI & Abdominal Exam: Soft, Tenderness (epigastric/RUQ). absent: Distended, Firm , Guarding, Rigid, Rebound - Extremities Exam Extremities Exam: absent: Calf Tenderness, Pedal Edema - Neurological Exam Neurological Exam: Alert, Awake, Oriented x3 - Psychiatric Exam Psychiatric exam: Normal Affect, Normal Mood - Skin Skin Exam: Dry, Normal Color, Warm Assessment and Plan - Assessment and Plan (Free Text) Assessment: 41F w. abd pain, r/o cholecystitis -c/w abx and pain meds -NPO at midnight -HIDA scan in AM -d/w attending Zemaitis PGY3
[2017-02-09] MEDS: Sodium Chloride 0.9% 1,000 ML IV SCH ×2 (08:45→19:27)
--- NOTE | 2017-02-09 08:58 | CP.PCM.PN ---
Subjective - Date & Time of Evaluation Date of Evaluation: 02/09/17 Time of Evaluation: 08:30 - Subjective Subjective: 41 y/o F , s/p on PPD# 7 seen and examined this morning. Patient denies pain at this evaluation. Denies Cp, SBO, cough, chills, N/V, headaches, acute change in vision, dizziness. Patient states that she has not been passing gases, and last bowel movement was 3 days ago. Reports that lochia are decreasing progressively, and denies foul smelling lochia. Objective - Vital Signs/Intake and Output Vital Signs (last 24 hours): Temp Pulse Resp BP Pulse Ox 98 F 60 18 112/62 98 02/09/17 08:13 02/09/17 08:13 02/09/17 08:13 02/09/17 08:13 02/09/17 08:13 - Medications Medications: Current Medications Docusate Sodium (Colace) 200 mg PO DAILY [facility] Heparin Sodium (Porcine) (Heparin) 5,000 units SC Q12 KAYLEIGH PRN Reason: Protocol Last Admin: 02/09/17 08:33 Dose: 5,000 units Hydrocortisone/Pramoxine (Proctofoam) 1 applic EXT Q8 PRN PRN Reason: Hemorrhoids Sodium Chloride (Sodium Chloride 0.9%) 1,000 mls @ 100 mls/hr IV .Q10H [facility] Last Admin: 02/08/17 22:33 Dose: Not Given Piperacillin Sod/Tazobactam (Sod 3.375 gm/ Sodium Chloride) 100 mls @ 100 mls/ hr IVPB Q6 [facility] Last Admin: 02/09/17 03:43 Dose: 100 mls/hr Magnesium Sulfate (Magnesium Sul 40gm/1l Sw) 40 gm in 1,000 mls @ 41.667 mls/ hr IV .Q24H ONE Stop: 02/09/17 09:39 Last Admin: 02/08/17 10:33 Dose: 41.667 mls/hr Ketorolac Tromethamine (Toradol) 30 mg IVP Q6 PRN PRN Reason: Pain, moderate (4-7) Last Admin: 02/09/17 08:40 Dose: 30 mg Multivit/Folic Acid/Iron () 1 tab PO DAILY [facility] - Labs Labs: 02/09/17 05:30 02/09/17 05:30 PT 10.2 Seconds (9.8-13.1) 02/07/17 14:19 INR 1.0 (0.9-1.2) 02/07/17 14:19 APTT 27.6 Seconds (25.6-37.1) 02/07/17 14:19 - Constitutional Appears: No Acute Distress - ENT Exam ENT Exam: Mucous Membranes Moist - Respiratory Exam Respiratory Exam: Clear to Ausculation Bilateral, NORMAL BREATHING PATTERN. absent: Rales, Rhonchi, Wheezes, Respiratory Distress - Cardiovascular Exam Cardiovascular Exam: REGULAR RHYTHM, +S1, +S2 - GI/Abdominal Exam GI & Abdominal Exam: Soft, Tenderness (mild tender to palpation of epigastrium and RUQ, no rebound tenderness noted), Normal Bowel Sounds. absent: Guarding, Rigid - Back Exam Back Exam: NORMAL INSPECTION. absent: CVA tenderness (L), CVA tenderness (R) - Neurological Exam Neurological Exam: Alert, Awake, Oriented x3 - Skin Skin Exam: Dry, Intact, Normal Color Assessment and Plan - Assessment and Plan (Free Text) Assessment: 41 y/o F , s/p on PPD# [facility] elevated HTN, bradycardia, elevated lever enzymes, and abdominal pain. Plan: Epigastric abdominal pain -US showed findings suggestive of acalculous cholecystitis. No gallstones -HIDA scan ordered by surgical team c/w abx IV f/u HIDA scan results f/u hep panel LFT elevated f/u surgical team recommendations S/P on PPD #7 stable, afebrile -Uterus firm below umbilicus -Lochia decreasing -no suicidal/homicidal ideation or other S/S or post- depression noted c/w post- pain control colace 200 mg daily PO vitamins PO daily Anemia most likely 2/2 blood loss during delivery stable H/H asymptomatic, no tachyc c/w PNV f/u H/H Post- hypertension -could be 2/2 pre-eclampsia ? -resolving, asymptomatic -platelets WNL -BP WNL -f/u BP, LFTs, and platelets -s/p Mag sul IV for 24 hrs Bradycardia -asymptomatic -f/o echo results f/u cardio recommendations Airspace disease in lower lobes CXR on 02/07/17 showed findings that could represent pneumonia pt is asymptomatic No clinical evidence of pneumonia will monitor DVT prophylaxis -c/w heparin SC
[2017-02-09] MEDS: Prenatal Multivit/Folic Acid/Iron Tab PO SCH (09:40)
--- NOTE | 2017-02-09 12:57 | CP.PCM.PN ---
<Vianney Bentley - Last Filed: 02/09/17 13:19> Subjective - Date & Time of Evaluation Date of Evaluation: 02/09/17 Time of Evaluation: 08:30 - Subjective Subjective: Patient seen and examined today a bedside. No overnight event. Reports feeling well today, no abdominal pain. States last BM 3 days ago. States good appetite, slept well through the night. Denies, fever, nausea, vomiting, no cough, chills , no chest pain, palpitations, sob or headache. Objective - Vital Signs/Intake and Output Vital Signs (last 24 hours): Temp Pulse Resp BP Pulse Ox 97.8 F 52 L 18 146/81 97 02/09/17 12:22 02/09/17 12:22 02/09/17 12:22 02/09/17 12:22 02/09/17 12:22 - Medications Medications: Current Medications Docusate Sodium (Colace) 200 mg PO DAILY [facility] Last Admin: 02/09/17 09:40 Dose: 200 mg Heparin Sodium (Porcine) (Heparin) 5,000 units SC Q12 KAYLEIGH PRN Reason: Protocol Last Admin: 02/09/17 08:33 Dose: 5,000 units Hydrocortisone/Pramoxine (Proctofoam) 1 applic EXT Q8 PRN PRN Reason: Hemorrhoids Sodium Chloride (Sodium Chloride 0.9%) 1,000 mls @ 100 mls/hr IV .Q10H [facility] Last Admin: 02/09/17 08:45 Dose: 100 mls/hr Piperacillin Sod/Tazobactam (Sod 3.375 gm/ Sodium Chloride) 100 mls @ 100 mls/ hr IVPB Q6 [facility] Last Admin: 02/09/17 09:40 Dose: 100 mls/hr Ketorolac Tromethamine (Toradol) 30 mg IVP Q6 PRN PRN Reason: Pain, moderate (4-7) Last Admin: 02/09/17 08:40 Dose: 30 mg Multivit/Folic Acid/Iron () 1 tab PO DAILY [facility] Last Admin: 02/09/17 09:40 Dose: 1 tab - Labs Labs: 02/09/17 05:30 02/09/17 05:30 PT 10.2 Seconds (9.8-13.1) 02/07/17 14:19 INR 1.0 (0.9-1.2) 02/07/17 14:19 APTT 27.6 Seconds (25.6-37.1) 02/07/17 14:19 - Constitutional Appears: Well, No Acute Distress - Head Exam Head Exam: ATRAUMATIC, NORMOCEPHALIC - Eye Exam Eye Exam: EOMI, Normal appearance, PERRL - ENT Exam ENT Exam: Mucous Membranes Moist - Neck Exam Neck Exam: Full ROM. absent: Lymphadenopathy, Thyromegaly - Respiratory Exam Respiratory Exam: Clear to Ausculation Bilateral, NORMAL BREATHING PATTERN - Cardiovascular Exam Cardiovascular Exam: Bradycardia, REGULAR RHYTHM, +S1, +S2. absent: Murmur - GI/Abdominal Exam GI & Abdominal Exam: Soft, Tenderness (Mild over epigastrum.), Normal Bowel Sounds. absent: Organomegaly - Extremities Exam Extremities Exam: Full ROM, Normal Inspection. absent: Calf Tenderness, Pedal Edema - Back Exam Back Exam: NORMAL INSPECTION. absent: vertebral tenderness - Neurological Exam Neurological Exam: Alert, Awake, CN II-XII Intact, Oriented x3, Reflexes Normal - Psychiatric Exam Psychiatric exam: Normal Mood - Skin Skin Exam: Dry, Normal Color, Warm Assessment and Plan - Assessment and Plan (Free Text) Assessment: Assessment: 41 year old female who is 6 days with abdominal pain x 1 day. Bradycardia. Findings of possible acalculous cholecystitis. Vitals stable. Pain with minimal improvement Plan: (1) Abdominal pain -Elevated LFTs, Afebrile, no leukocytosis -Surgery consulted for acalculous cholecystitis HIDA scan ordered, pending for tomorrow D dimer Hep panel -NPO -c/w Zosyn q6h -Toradol prn pain -IVF -f/u blood cx -CXR ordered (2) Bradycardia/Improving -Low 60s High 50s on monitor today -EKG shows sinus ronald -Cardiac monitoring -Cardiology Dr Donald order: TIGIST, Lupus panel, Lyme disease Ab, Rheumatoid factor. Pending Echo report. (3) Hypertension - stable -Stable, mildly elevated, asymptomatic -Will continue to monitor in tele -Consider Hydralazine if BP elevated -OB consulted for abdominal pain/ htn preeclampsia? -DC Mg 40 IV (4) Elevated LFTs -AST/ALT: 182/448 (slowly trending up) (5) Anemia - stable - Hgb 11.4 - No supplementation at this time, continue to monitor (6) DVT prophylaxis - Heparin 5000 units sc Q12. <Angela Pope - Last Filed: 02/10/17 07:10> Objective - Vital Signs/Intake and Output Vital Signs (last 24 hours): Temp Pulse Resp BP Pulse Ox 98.4 F 51 L 19 160/79 H 96 02/10/17 04:45 02/10/17 04:45 02/10/17 04:45 02/10/17 04:45 02/10/17 04:45 - Medications Medications: Current Medications Docusate Sodium (Colace) 200 mg PO DAILY [facility] Last Admin: 02/09/17 09:40 Dose: 200 mg Heparin Sodium (Porcine) (Heparin) 5,000 units SC Q12 [facility]LEIGH PRN Reason: Protocol Last Admin: 02/09/17 21:39 Dose: 5,000 units Hydrocortisone/Pramoxine (Proctofoam) 1 applic EXT Q8 PRN PRN Reason: Hemorrhoids Sodium Chloride (Sodium Chloride 0.9%) 1,000 mls @ 100 mls/hr IV .Q10H [facility] Last Admin: 02/10/17 03:53 Dose: 100 mls/hr Piperacillin Sod/Tazobactam (Sod 3.375 gm/ Sodium Chloride) 100 mls @ 100 mls/ hr IVPB Q6 [facility] Last Admin: 02/10/17 03:49 Dose: 100 mls/hr Ketorolac Tromethamine (Toradol) 30 mg IVP Q6 PRN PRN Reason: Pain, moderate (4-7) Last Admin: 02/09/17 16:21 Dose: 30 mg Multivit/Folic Acid/Iron () 1 tab PO DAILY [facility] Last Admin: 02/09/17 09:40 Dose: 1 tab - Labs Labs: 02/09/17 05:30 02/10/17 05:35 PT 10.2 Seconds (9.8-13.1) 02/07/17 14:19 INR 1.0 (0.9-1.2) 02/07/17 14:19 APTT 27.6 Seconds (25.6-37.1) 02/07/17 14:19 - Skin Additional comments: ADDENDUM ATTENDIG NOTE PATIENT SEEN AND EXAMINED. CASE DISCUSSED WIT HRESIDENT. AWAITIG ECHOCARDIOGRAM REPORT, HIDA SCAN TO BE DONE, REPEAT CXR, HEPATITIS PANEL. AGREE WITH FINDINGS AND PLAN
--- NOTE | 2017-02-09 15:16 | RAD ---
PROCEDURE: CHEST RADIOGRAPH, 1 VIEW HISTORY: airspace disease COMPARISON: 02/07/2017. FINDINGS: LUNGS: There is mild pulmonary venous congestion. The lungs are clear. PLEURA: No pneumothorax or pleural fluid seen. CARDIOVASCULAR: Normal. OSSEOUS STRUCTURES: No significant abnormalities. VISUALIZED UPPER ABDOMEN: Normal. OTHER FINDINGS: None. IMPRESSION: No acute findings.
[2017-02-09] MEDS ORDERED: Sodium Chloride 0.9% 50 ML IV ONE (15:33)
[2017-02-09] MEDS ORDERED: Iodixanol 320 MG/ML 100 ML BOTTLE IV ONE (15:33)
--- NOTE | 2017-02-09 16:38 | CT ---
PROCEDURE: CT Chest with contrast (Pulmonary Angiogram) HISTORY: r/o PE COMPARISON: None available. TECHNIQUE: Axial computed tomography images were obtained of the chest in the pulmonary arterial phase of enhancement. Coronal and sagittal reformatted images were created and reviewed. Intravenous contrast dose: 90 mL Visipaque 320 Radiation dose: Total exam DLP = 408.13 mGy-cm. This CT exam was performed using one or more of the following dose reduction techniques: Automated exposure control, adjustment of the mA and/or kV according to patient size, and/or use of iterative reconstruction technique. FINDINGS: PULMONARY ARTERIES: There are no filling defects in the pulmonary arteries to suggest acute pulmonary embolism. AORTA: The aorta is normal in caliber. No aortic dissection or aneurysm. . LUNGS: There is no focal consolidation, mass or suspicious pulmonary nodule. There is dependent atelectasis in the posterior lungs. There are no endobronchial lesions. PLEURAL SPACES: There are bilateral small pleural effusions, larger on the right. There is compressive atelectasis in the lower lobes. No pneumothorax. HEART: The heart is normal in size. No pericardial effusion. LYMPH NODES: No pathologic lymphadenopathy. BONES, CHEST WALL: Unremarkable. No fracture or destructive lesion OTHER FINDINGS: Unremarkable. IMPRESSION: 1. No CT evidence for acute pulmonary embolism. 2. Small bilateral pleural effusions, larger on the right.
[2017-02-10] MEDS: Piperacillin/Tazobact 3.375 GM in Sodium Chloride 0.9% 100 ML IVPB SCH ×2 (03:49→10:40)
[2017-02-10] MEDS: Sodium Chloride 0.9% 1,000 ML IV SCH ×2 (03:53→15:10)
[2017-02-10 06:29] LABS: ALKALINE PHOSPHATASE 89 U/L (38-126); ALT/SGPT 309 U/L (9-52); AST/SGOT 64 U/L (14-36); BILIRUBIN,TOTAL 0.6 mg/dl (0.2-1.3); BLOOD UREA NITROGEN 11 mg/dl (7-17); CALCIUM 8.1 mg/dL (8.4-10.2); CARBON DIOXIDE 21 mmol/L (22-30); CHLORIDE 110 mmol/L (98-107); GFR AFRICAN-AMERICAN > 60; GLUCOSE,RANDOM 80 mg/dL (65-105); POTASSIUM 4.2 MMOL/L (3.6-5.0); SODIUM 140 mmol/l (132-148)
[2017-02-10 06:37] LABS: IRON 52 ug/dL (37-170)
--- NOTE | 2017-02-10 07:20 | CP.PCM.PN ---
Subjective - Date & Time of Evaluation Date of Evaluation: 02/10/17 Time of Evaluation: 07:18 - Subjective Subjective: Surgery: Dr. Rico Pt seen and examined. Continues to have epigastric pain. No N/V/D. No F/C. For HIDA scan today Objective - Vital Signs/Intake and Output Vital Signs (last 24 hours): Temp Pulse Resp BP Pulse Ox 98.4 F 51 L 19 160/79 H 96 02/10/17 04:45 02/10/17 04:45 02/10/17 04:45 02/10/17 04:45 02/10/17 04:45 - Medications Medications: Current Medications Docusate Sodium (Colace) 200 mg PO DAILY [facility] Last Admin: 02/09/17 09:40 Dose: 200 mg Heparin Sodium (Porcine) (Heparin) 5,000 units SC Q12 KAYLEIGH PRN Reason: Protocol Last Admin: 02/09/17 21:39 Dose: 5,000 units Hydrocortisone/Pramoxine (Proctofoam) 1 applic EXT Q8 PRN PRN Reason: Hemorrhoids Sodium Chloride (Sodium Chloride 0.9%) 1,000 mls @ 100 mls/hr IV .Q10H [facility] Last Admin: 02/10/17 03:53 Dose: 100 mls/hr Piperacillin Sod/Tazobactam (Sod 3.375 gm/ Sodium Chloride) 100 mls @ 100 mls/ hr IVPB Q6 [facility] Last Admin: 02/10/17 03:49 Dose: 100 mls/hr Ketorolac Tromethamine (Toradol) 30 mg IVP Q6 PRN PRN Reason: Pain, moderate (4-7) Last Admin: 02/09/17 16:21 Dose: 30 mg Multivit/Folic Acid/Iron () 1 tab PO DAILY [facility] Last Admin: 02/09/17 09:40 Dose: 1 tab - Labs Labs: 02/09/17 05:30 02/10/17 05:35 PT 10.2 Seconds (9.8-13.1) 02/07/17 14:19 INR 1.0 (0.9-1.2) 02/07/17 14:19 APTT 27.6 Seconds (25.6-37.1) 02/07/17 14:19 - Constitutional Appears: Non-toxic, No Acute Distress - Head Exam Head Exam: ATRAUMATIC, NORMOCEPHALIC - Eye Exam Eye Exam: EOMI. absent: Scleral icterus - ENT Exam ENT Exam: Mucous Membranes Moist, Normal External Ear Exam - Neck Exam Neck Exam: Full ROM - Respiratory Exam Respiratory Exam: NORMAL BREATHING PATTERN. absent: Accessory Muscle Use, Respiratory Distress - GI/Abdominal Exam GI & Abdominal Exam: Soft, Tenderness (epigastric). absent: Distended, Firm, Guarding, Rigid, Rebound - Extremities Exam Extremities Exam: absent: Calf Tenderness, Pedal Edema - Neurological Exam Neurological Exam: Alert, Awake, Oriented x3 Assessment and Plan - Assessment and Plan (Free Text) Assessment: 41F w. and pain, R/O cholecystitis -For HIDA scan today, f/u results -c/w abx -trend LFTs -f/u hep panel -d/w attending Zemaitis PGY3
--- NOTE | 2017-02-10 07:42 | PN ---
DATE: 02/09/2017 SUBJECTIVE: The patient denies chest pain. Abdominal pain is improved. She has tolerated diet. PHYSICAL EXAMINATION: VITAL SIGNS: Blood pressure 152/85, heart rate 53, temperature 98, respirations 16. HEENT: Normocephalic. CHEST: Clear. HEART: S1, S2, regular. EXTREMITIES: No edema. LABORATORY DATA: SMA-7 is within normal limits. Calcium is normal at 7.1. AST and ALT are 182 and [address] angiography revealed no evidence of acute pulmonary embolism; small bilateral pleural effusion, larger on the right. I did review the echocardiography study which revealed septal hypokinesis, dilated right ventricle with right ventricular hypokinesis and for this reason, I requested a CT angio. The chest x-ray report revealed no acute findings. ASSESSMENT: 1. Mild sinus bradycardia. 2. Rule out underlying sepsis. 3. Liver nodule, rule out underlying malignancy. RECOMMENDATIONS: Continue current subcutaneous heparin at 5000 units twice a day. Continue IV Zosyn. The patient will undergo HIDA scan. Nabil Donald MD
--- NOTE | 2017-02-10 09:01 | CP.PCM.PN ---
Subjective - Date & Time of Evaluation Date of Evaluation: 02/10/17 Time of Evaluation: 06:40 - Subjective Subjective: Patient seen and examined today at bedside, no overnight events, reports feel fine today, states mild pain in epigastrium, good appetite, slept well. Denies fever, nausea, vomiting, headache, no chills, no chest pain, palpitations. No urinary symptoms. Objective - Vital Signs/Intake and Output Vital Signs (last 24 hours): Temp Pulse Resp BP Pulse Ox 98.4 F 51 L 19 160/79 H 96 02/10/17 04:45 02/10/17 04:45 02/10/17 04:45 02/10/17 04:45 02/10/17 04:45 - Medications Medications: Current Medications Docusate Sodium (Colace) 200 mg PO DAILY [facility] Last Admin: 02/09/17 09:40 Dose: 200 mg Heparin Sodium (Porcine) (Heparin) 5,000 units SC Q12 KAYLEIGH PRN Reason: Protocol Last Admin: 02/09/17 21:39 Dose: 5,000 units Hydrocortisone/Pramoxine (Proctofoam) 1 applic EXT Q8 PRN PRN Reason: Hemorrhoids Sodium Chloride (Sodium Chloride 0.9%) 1,000 mls @ 100 mls/hr IV .Q10H [facility] Last Admin: 02/10/17 03:53 Dose: 100 mls/hr Piperacillin Sod/Tazobactam (Sod 3.375 gm/ Sodium Chloride) 100 mls @ 100 mls/ hr IVPB Q6 [facility] Last Admin: 02/10/17 03:49 Dose: 100 mls/hr Ketorolac Tromethamine (Toradol) 30 mg IVP Q6 PRN PRN Reason: Pain, moderate (4-7) Last Admin: 02/09/17 16:21 Dose: 30 mg Multivit/Folic Acid/Iron () 1 tab PO DAILY [facility] Last Admin: 02/09/17 09:40 Dose: 1 tab - Labs Labs: 02/09/17 05:30 02/10/17 05:35 PT 10.2 Seconds (9.8-13.1) 02/07/17 14:19 INR 1.0 (0.9-1.2) 02/07/17 14:19 APTT 27.6 Seconds (25.6-37.1) 02/07/17 14:19 - Constitutional Appears: Well, No Acute Distress - Head Exam Head Exam: ATRAUMATIC, NORMOCEPHALIC - Eye Exam Eye Exam: EOMI, Normal appearance, PERRL - ENT Exam ENT Exam: Mucous Membranes Moist - Neck Exam Neck Exam: Full ROM. absent: Lymphadenopathy, Thyromegaly - Respiratory Exam Respiratory Exam: Clear to Ausculation Bilateral, NORMAL BREATHING PATTERN. absent: Rales, Rhonchi, Wheezes - Cardiovascular Exam Cardiovascular Exam: Bradycardia, REGULAR RHYTHM, +S1, +S2 - Extremities Exam Extremities Exam: Full ROM, Normal Inspection. absent: Calf Tenderness, Pedal Edema - Back Exam Back Exam: NORMAL INSPECTION. absent: vertebral tenderness - Neurological Exam Neurological Exam: Alert, Awake, CN II-XII Intact, Oriented x3, Reflexes Normal - Psychiatric Exam Psychiatric exam: Normal Mood - Skin Skin Exam: Dry, Normal Color, Warm Assessment and Plan - Assessment and Plan (Free Text) Assessment: 41 year old female who is 6 days with abdominal pain x 1 day. Bradycardia. Findings of possible acalculous cholecystitis. Vitals stable. Plan: (1) Abdominal pain - LFTs trending low - Afebrile, no leukocytosis -Surgery consulted for acalculous cholecystitis HIDA scan today D dimer: Elevated Hep panel: negative -NPO -c/w Zosyn q6h -Toradol prn pain -IVF -f/u blood cx -CXR ordered (2) Bradycardia/Improving -Low 60s High 50s on monitor today -EKG shows sinus ronald -Cardiac monitoring -Cardiology Dr Donald order: TIGIST, Lupus panel, Lyme disease Ab, Rheumatoid factor: pending Pending Echo report. (3) Hypertension - stable -Stable, mildly elevated, asymptomatic -Will continue to monitor in tele -Consider Hydralazine if BP elevated -OB on board (4) Elevated LFTs -AST/ALT: 64/309 (slowly trending low) (5) Anemia - stable - Hgb 11.4 - No supplementation at this time, continue to monitor -c/w vitamins (6) DVT prophylaxis - Heparin 5000 units sc Q12.
--- NOTE | 2017-02-10 10:08 | CARD ---
APPROVED REPORT EXAM: Two-dimensional and M-mode echocardiogram with Doppler and color Doppler. Other Information Quality : GoodRhythm : Bradycardia INDICATION Abnormal EKG/Arrhythmia 2D DIMENSIONS IVSd0.81 (0.7-1.1cm)LVDd4.73 (3.9-5.9cm) LVOT Diameter1.90 (1.8-2.4cm)PWd0.79 (0.7-1.1cm) IVSs0.86 (0.8-1.2cm)LVDs4.33 (2.5-4.0cm) FS (%) 8.4 %PWs0.96 (0.8-1.2cm) M-Mode DIMENSIONS Left Atrium (MM)3.82 (2.5-4.0cm)IVSd0.88 (0.7-1.1cm) Aortic Root2.44 (2.2-3.7cm)LVDd5.03 (4.0-5.6cm) Aortic Cusp Exc.1.74 (1.5-2.0cm)PWd0.85 (0.7-1.1cm) IVSs0.88 cmFS (%) 32 % LVDs3.44 (2.0-3.8cm)PWs1.18 cm Mitral Valve MV E Epkypimq455.2cm/sMV DECEL [id number] A Gyuyjtnm80.1cm/s MV QMP13jtP/A ratio3.9MVA (PHT)2.62cm2 TDI Lateral E' Peak V13.85cm/sMedial E' Peak V9.70cm/sE/Lateral E'8.5 E/Medial E'12.2 Tricuspid Valve TR Peak Lzucfble463xm/sRAP [id number] Peak Gr.23mmHg [id number] LEFT VENTRICLE The left ventricle is normal size. There is normal left ventricular wall thickness. The left ventricular function is normal. The left ventricular ejection fraction is 55% There is normal LV segmental wall motion. The left ventricular diastolic function is normal. No left ventricle thrombus noted on this study. There is no ventricular septal defect visualized. There is no left ventricular aneurysm. There is no mass noted in the left ventricle. RIGHT VENTRICLE The right ventricle is normal size. There is normal right ventricular wall thickness. The right ventricular systolic function is normal. ATRIA The left atrium size is normal. The right atrium size is normal. The interatrial septum is intact with no evidence for an atrial septal defect. AORTIC VALVE The aortic valve is normal in structure and function. No aortic regurgitation is present. There is no aortic valvular stenosis. There is no aortic valvular vegetation. MITRAL VALVE The mitral valve is normal in structure and function. There is no evidence of mitral valve prolapse. There is no mitral valve stenosis. There is no mitral valve regurgitation noted. TRICUSPID VALVE The tricuspid valve is normal in structure and function. There is no tricuspid valve regurgitation noted. There is no tricuspid valve prolapse or vegetation. There is no tricuspid valve stenosis. PULMONIC VALVE The pulmonary valve is normal in structure and function. There is no pulmonic valvular regurgitation. There is no pulmonic valvular stenosis. GREAT VESSELS The aortic root is normal in size. The ascending aorta is normal in size. The IVC is normal in size and collapses >50% with inspiration. PERICARDIAL EFFUSION The pericardium appears normal. There is no pleural effusion. <Conclusion> Normal Echocardiogram
--- NOTE | 2017-02-10 11:10 | CARD ---
APPROVED REPORT EKG Measurement Heart [id number] <Conclusion> Marked sinus bradycardia Low voltage QRS Abnormal ECG
[2017-02-10] MEDS: Prenatal Multivit/Folic Acid/Iron Tab PO SCH (11:54)
--- NOTE | 2017-02-10 11:55 | NM ---
PROCEDURE: Nuclear Medicine Hepatobiliary Scan HISTORY: R/O cholecystitis COMPARISON: Abdomen ultrasound as well as contrast abdomen and pelvis CT examinations 02/07/2017 TECHNIQUE: 5.8 mCi of technetium 99m Mebrofenin was administered intravenously. Planar images of the abdomen were obtained at 5 min intervals to 60 minutes. Delayed images were also obtained. FINDINGS: LIVER: Timely and homogenous uptake. COMMON BILE DUCT: identified at 5 mins. GALLBLADDER: identified at 5-10 mins. SMALL BOWEL: Identified at 15 mins. IMPRESSION: Normal Hepatobiliary Scan. The cystic and common bile ducts are patent.
--- NOTE | 2017-02-10 12:46 | CP.PCM.PN ---
<Heidy Wolff - Last Filed: 02/10/17 14:30> Subjective - Date & Time of Evaluation Date of Evaluation: 02/10/17 Time of Evaluation: 12:43 - Subjective Subjective: 41 YO with no sig PMH with abdominal pain, HTN, bradycardia and elevated LFTs, PPD #8. S: No acute overnight events. Pt is seen and examined bedside today. Pt had the HIDA scan earlier this AM. Pt states that she does not have any pain her abdomen , right now. She only feels pain when someone presses on her stomach. She rates the pain as a 0/10 this morning. Is ambulating without feeling dizzy or faint. Denies headache, blurry vision, diplopia, dizziness, chest pain, dyspnea , n/v/d/c and weakness. Of note, pt expresses desire to go home to see her baby. Objective - Vital Signs/Intake and Output Vital Signs (last 24 hours): Temp Pulse Resp BP Pulse Ox 98.1 F 40 L 18 158/86 H 96 02/10/17 12:33 02/10/17 12:33 02/10/17 12:33 02/10/17 12:33 02/10/17 12:33 - Medications Medications: Current Medications Docusate Sodium (Colace) 200 mg PO DAILY [facility] Last Admin: 02/10/17 11:54 Dose: 200 mg Heparin Sodium (Porcine) (Heparin) 5,000 units SC Q12 [facility] PRN Reason: Protocol Last Admin: 02/09/17 21:39 Dose: 5,000 units Hydrocortisone/Pramoxine (Proctofoam) 1 applic EXT Q8 PRN PRN Reason: Hemorrhoids Sodium Chloride (Sodium Chloride 0.9%) 1,000 mls @ 100 mls/hr IV .Q10H [facility] Last Admin: 02/10/17 03:53 Dose: 100 mls/hr Piperacillin Sod/Tazobactam (Sod 3.375 gm/ Sodium Chloride) 100 mls @ 100 mls/ hr IVPB Q6 [facility] Last Admin: 02/10/17 10:40 Dose: 100 mls/hr Ketorolac Tromethamine (Toradol) 30 mg IVP Q6 PRN PRN Reason: Pain, moderate (4-7) Last Admin: 02/09/17 16:21 Dose: 30 mg Multivit/Folic Acid/Iron () 1 tab PO DAILY [facility] Last Admin: 02/10/17 11:54 Dose: 1 tab - Labs Labs: 02/09/17 05:30 02/10/17 05:35 PT 10.2 Seconds (9.8-13.1) 02/07/17 14:19 INR 1.0 (0.9-1.2) 02/07/17 14:19 APTT 27.6 Seconds (25.6-37.1) 02/07/17 14:19 - Constitutional Appears: Well, No Acute Distress - Head Exam Head Exam: ATRAUMATIC, NORMOCEPHALIC - Eye Exam Eye Exam: EOMI, PERRL - Neck Exam Neck Exam: Full ROM - Respiratory Exam Respiratory Exam: Clear to Ausculation Bilateral, NORMAL BREATHING PATTERN. absent: Wheezes - Cardiovascular Exam Cardiovascular Exam: Bradycardia, +S1, +S2. absent: Murmur - GI/Abdominal Exam GI & Abdominal Exam: Soft, Normal Bowel Sounds. absent: Distended Additional comments: Minimal tenderness to palpation in the epigastria area. Negative rebound. Uterus is firm and 3cm below the umbilicus. - Extremities Exam Extremities Exam: Full ROM, Normal Capillary Refill, Normal Inspection Additional comments: minimal edema b/l in the lower extremities - Neurological Exam Neurological Exam: Alert, Awake, CN II-XII Intact, Oriented x3 - Psychiatric Exam Psychiatric exam: Normal Affect, Normal Mood - Skin Skin Exam: Dry, Normal Color, Warm Assessment and Plan - Assessment and Plan (Free Text) Assessment: Assessment/Plan: 41 y/o F , s/p on PPD# 8 admitted to [facility] for HTN, bradycardia, elevated LFTs, and abdominal pain. Epigastric/RUQ abdominal pain -US showed findings suggestive of acalculous cholecystitis. -HIDA scan ordered by surgical team, f/u with results and recs -Hep panel appreciated, neg -LFTs trending down, (AST/ALT 64/309 today) Post- hypertension pre-eclampsia, less likely. Currently asymptomatic. -s/p Mag sul IV for 24 hrs -platelets WNL -trace proteinuria (on initial UA) -continue monitor BP, and follow cardio recs. on PPD #8 stable, afebrile -Uterus firm and below umbilicus -Lochia similair to menses, and decreasing -no suicidal/homicidal ideation or other S/S or post- depression noted -c/w pain control and PNV Anemia most likely 2/2 blood loss during delivery -stable H/H Bradycardia, asymptomatic -f/o echo results -cardio recommendations Continue management per primary team. OBGYN will sign off at this time. Thank you for the consult and please re- consult as needed. <Hero Madison S - Last Filed: 02/10/17 15:03> Objective - Vital Signs/Intake and Output Vital Signs (last 24 hours): Temp Pulse Resp BP Pulse Ox 98.1 F 40 L 18 158/86 H 96 02/10/17 12:33 02/10/17 12:33 02/10/17 12:33 02/10/17 12:33 02/10/17 12:33 - Medications Medications: Current Medications Docusate Sodium (Colace) 200 mg PO DAILY [facility] Last Admin: 02/10/17 11:54 Dose: 200 mg Heparin Sodium (Porcine) (Heparin) 5,000 units SC Q12 [facility] PRN Reason: Protocol Last Admin: 02/09/17 21:39 Dose: 5,000 units Hydrocortisone/Pramoxine (Proctofoam) 1 applic EXT Q8 PRN PRN Reason: Hemorrhoids Sodium Chloride (Sodium Chloride 0.9%) 1,000 mls @ 100 mls/hr IV .Q10H [facility] Last Admin: 02/10/17 03:53 Dose: 100 mls/hr Piperacillin Sod/Tazobactam (Sod 3.375 gm/ Sodium Chloride) 100 mls @ 100 mls/ hr IVPB Q6 [facility] Last Admin: 02/10/17 10:40 Dose: 100 mls/hr Ketorolac Tromethamine (Toradol) 30 mg IVP Q6 PRN PRN Reason: Pain, moderate (4-7) Last Admin: 02/09/17 16:21 Dose: 30 mg Multivit/Folic Acid/Iron () 1 tab PO DAILY [facility] Last Admin: 02/10/17 11:54 Dose: 1 tab - Labs Labs: 02/09/17 05:30 02/10/17 05:35 PT 10.2 Seconds (9.8-13.1) 02/07/17 14:19 INR 1.0 (0.9-1.2) 02/07/17 14:19 APTT 27.6 Seconds (25.6-37.1) 02/07/17 14:19 Assessment and Plan - Assessment and Plan (Free Text) Plan: [facility] addendum: Patient seen and examined by me. Agree with above assessment and plan. Patient advised to follow up in 5 weeks for her routine visit. We'll sign off patient's chart. Thank you for this. consult
[2017-02-10 16:06] VITALS: BP 145/73; PULSE 48; RESP 20; TEMP 98.3
--- NOTE | 2017-02-10 16:07 | CP.PCM.DIS ---
<Vianney Bentley - Last Filed: 02/10/17 18:14> Provider - Provider Date of Admission: 02/07/17 15:59 Attending physician: Angela Pope MD Time Spent in preparation of Discharge (in minutes): 30 Hospital Course - Lab Results Lab Results: Micro Results 02/07/17 18:30 Blood-Venous Blood Culture - Preliminary NO GROWTH AFTER 48 HOURS Most Recent Lab Values WBC 5.8 K/uL (4.8-10.8) 02/09/17 05:30 RBC 4.13 Mil/uL (3.80-5.20) 02/09/17 05:30 Hgb 11.4 g/dL (12.0-16.0) L 02/09/17 05:30 Hct 34.9 % (34.0-47.0) 02/09/17 05:30 MCV 84.5 fl (81.0-99.0) 02/09/17 05:30 MCH 27.6 pg (27.0-31.0) 02/09/17 05:30 MCHC 32.7 g/dL (33.0-37.0) L 02/09/17 05:30 RDW 15.5 % (11.5-14.5) H 02/09/17 05:30 Plt Count 180 K/uL (130-400) 02/09/17 05:30 MPV 11.3 fl (7.2-11.7) 02/07/17 14:19 Neut % (Auto) 62.4 % (50.0-75.0) 02/07/17 14:19 Lymph % (Auto) 29.2 % (20.0-40.0) 02/07/17 14:19 [place] % (Auto) 5.9 % (0.0-10.0) 02/07/17 14:19 Eos % (Auto) 1.7 % (0.0-4.0) 02/07/17 14:19 Baso % (Auto) 0.8 % (0.0-2.0) 02/07/17 14:19 Neut # 4.2 K/uL (1.8-7.0) 02/07/17 14:19 Lymph # 2.0 K/uL (1.0-4.3) 02/07/17 14:19 [place] # 0.4 K/uL (0.0-0.8) 02/07/17 14:19 Eos # 0.1 K/uL (0.0-0.7) 02/07/17 14:19 Baso # 0.1 K/uL (0.0-0.2) 02/07/17 14:19 PT 10.2 Seconds (9.8-13.1) 02/07/17 14:19 INR 1.0 (0.9-1.2) 02/07/17 14:19 APTT 27.6 Seconds (25.6-37.1) 02/07/17 14:19 D-Dimer, Quantitative 3442.5 ng/mlDDU (0-230) H 02/09/17 15:00 Sodium 140 mmol/l (132-148) 02/10/17 05:35 Potassium 4.2 MMOL/L (3.6-5.0) 02/10/17 05:35 Chloride 110 mmol/L (98-107) H 02/10/17 05:35 Carbon Dioxide 21 mmol/L (22-30) L 02/10/17 05:35 Anion Gap 13 (10-20) 02/10/17 05:35 BUN 11 mg/dl (7-17) 02/10/17 05:35 Creatinine 0.9 mg/dL (0.7-1.2) 02/10/17 05:35 Est GFR ( Amer) > 60 02/10/17 05:35 Est GFR (Non-Af Amer) > 60 02/10/17 05:35 Random Glucose 80 mg/dL (65-105) 02/10/17 05:35 Calcium 8.1 mg/dL (8.4-10.2) L 02/10/17 05:35 Iron 52 ug/dL (37-170) 02/10/17 05:35 TIBC 372 ug/dL (250-450) 02/10/17 05:35 % Saturation 14 % (20-55) L 02/10/17 05:35 Ferritin 18.3 ng/mL 02/10/17 05:35 Total Bilirubin 0.6 mg/dl (0.2-1.3) 02/10/17 05:35 AST 64 U/L (14-36) H D 02/10/17 05:35 ALT 309 U/L (9-52) H D 02/10/17 05:35 Alkaline Phosphatase 89 U/L (38-126) 02/10/17 05:35 Troponin I < 0.0120 ng/mL (0.00-0.120) 02/07/17 14:19 NT-Pro-B Natriuret Pep 458 pg/ml (0-450) H 02/07/17 14:19 Total Protein 6.0 G/DL (6.3-8.2) L 02/10/17 05:35 Albumin 3.1 g/dL (3.5-5.0) L 02/10/17 05:35 Globulin 3.0 gm/dL (2.2-3.9) 02/10/17 05:35 Albumin/Globulin Ratio 1.0 (1.0-2.1) 02/10/17 05:35 TSH 3rd Generation 1.59 mIU/ML (0.46-4.68) 02/08/17 06:00 Urine Color Yellow (YELLOW) 02/07/17 17:35 Urine Clarity Slighty-cloudy (Clear) 02/07/17 17:35 Urine pH 6.0 (5.0-8.0) 02/07/17 17:35 Ur Specific [place] 1.015 (1.003-1.030) 02/07/17 17:35 Urine Protein 30 mg/dL (NEGATIVE) 02/07/17 17:35 Urine Glucose (UA) Neg mg/dL (Normal) 02/07/17 17:35 Urine Ketones Negative mg/dL (NEGATIVE) 02/07/17 17:35 Urine Blood Large (NEGATIVE) 02/07/17 17:35 Urine Nitrate Negative (NEGATIVE) 02/07/17 17:35 Urine Bilirubin Negative (NEGATIVE) 02/07/17 17:35 Urine Urobilinogen 0.2-1.0 mg/dL (0.2-1.0) 02/07/17 17:35 Ur Leukocyte Esterase Mod Compa/uL (Negative) 02/07/17 17:35 Urine RBC (Auto) 233 /hpf (0-3) H 02/07/17 17:35 Urine Microscopic WBC 59 /hpf (0-5) H 02/07/17 17:35 Ur Squamous Epith Cells 5 /hpf (0-5) 02/07/17 17:35 Urine Bacteria Occ (<OCC) H 02/07/17 17:35 Hyaline Casts 0-2 /hpf (0-2) 02/07/17 17:35 Hepatitis A IgM Ab Negative (NEGATIVE) 02/08/17 10:10 Hep Bs Antigen Negative (NEGATIVE) 02/08/17 10:10 Hep B Core IgM Ab Negative (NEGATIVE) 02/08/17 10:10 Hepatitis C Antibody Negative (NEGATIVE) 02/08/17 10:10 - Hospital Course Hospital Course: 41 year old female who is 7 days admitted with abdominal pain x 1 day, bradycardia and HTN. Findings of possible acalculous cholecystitis. VS: bradycardia high 40s low 50s, HTN controlled. EKG: Sinus bradycardia. CBC: Hgb 11.4, LFT: AST/ALT 155/329, trending low 64/309 today Hep panel negative. CXR: confluent airspace disease in lower lobes, could represent PNA.(02/07/17) -02/09/17 no acute findings. Head CT: No acute intracranial hemorrhage. Abd US: acute acalculous cholecystitis. small R pleural effusion mild hepatomegaly. Abd CT: small right pleural effusion, 1.2 cm enhancing nodule seen at R liver lobe, new compared to previous exam. R/O malignancy.Pericholecystic fluid could be due to new ascites, interval markedly increase in the uterus size since previous exam. HIDA: normal hepatobiliary scan, cystic and common bile ducts are patent. blood cx D dimer positive Zosyn q6h Toradol prn pain IVF Heparin 5000 units SC Q12 MgS 40 gm IV PNV Patient asymptomatic at discharge time. F/U with PMD on 02/18/17 at [facility]. Referral to Cardiology. CMP Holter monitor. ED precautions given Discharge Exam - Head Exam Head Exam: ATRAUMATIC, NORMOCEPHALIC - Eye Exam Eye Exam: EOMI, Normal appearance, PERRL. absent: Nystagmus - Neck Exam Neck exam: Full Rom - Respiratory Exam Respiratory Exam: Clear to PA & Lateral. absent: Rales, Rhonchi, Wheezes - Cardiovascular Exam Cardiovascular Exam: Bradycardia, REGULAR RHYTHM, +S1, +S2 - GI/Abdominal Exam GI & Abdominal Exam: Normal Bowel Sounds, Soft. absent: Mass, Tenderness - Extremities Exam Extremities exam: normal inspection - Neurological Exam Neurological exam: Alert, CN II-XII Intact, Oriented x3, Reflexes Normal - Psychiatric Exam Psychiatric exam: Normal Mood Discharge Plan - Follow Up Plan Condition: GOOD Disposition: HOME/ ROUTINE Instructions: Heart Healthy Diet (DC), Bradycardia (DC) Additional Instructions: Follow up with Dr. Michaud on 02/18/2017 Obtain CMP labs prior to appt (rx given) Holter monitor and cardiac rx given, schedule as soon as possible ED precautions discussed including new/worsening symptoms to return to ED. This includes but not limited to chest pain, shortness of breath, palpitations, headache, dizziness, change of vision, lightheadness. Patient to follow up with OBGYN as scheduled (4 weeks) Recommend no for 24-36hr period due to HIDA Scan exposure <Angela Pope - Last Filed: 02/11/17 08:20> Provider - Provider Date of Admission: 02/07/17 15:59 Attending physician: Angela Pope MD Hospital Course - Lab Results Lab Results: Micro Results 02/07/17 18:30 Blood-Venous Blood Culture - Preliminary NO GROWTH AFTER 3 DAYS Most Recent Lab Values WBC 5.8 K/uL (4.8-10.8) 02/09/17 05:30 RBC 4.13 Mil/uL (3.80-5.20) 02/09/17 05:30 Hgb 11.4 g/dL (12.0-16.0) L 02/09/17 05:30 Hct 34.9 % (34.0-47.0) 02/09/17 05:30 MCV 84.5 fl (81.0-99.0) 02/09/17 05:30 MCH 27.6 pg (27.0-31.0) 02/09/17 05:30 MCHC 32.7 g/dL (33.0-37.0) L 02/09/17 05:30 RDW 15.5 % (11.5-14.5) H 02/09/17 05:30 Plt Count 180 K/uL (130-400) 02/09/17 05:30 MPV 11.3 fl (7.2-11.7) 02/07/17 14:19 Neut % (Auto) 62.4 % (50.0-75.0) 02/07/17 14:19 Lymph % (Auto) 29.2 % (20.0-40.0) 02/07/17 14:19 [place] % (Auto) 5.9 % (0.0-10.0) 02/07/17 14:19 Eos % (Auto) 1.7 % (0.0-4.0) 02/07/17 14:19 Baso % (Auto) 0.8 % (0.0-2.0) 02/07/17 14:19 Neut # 4.2 K/uL (1.8-7.0) 02/07/17 14:19 Lymph # 2.0 K/uL (1.0-4.3) 02/07/17 14:19 [place] # 0.4 K/uL (0.0-0.8) 02/07/17 14:19 Eos # 0.1 K/uL (0.0-0.7) 02/07/17 14:19 Baso # 0.1 K/uL (0.0-0.2) 02/07/17 14:19 PT 10.2 Seconds (9.8-13.1) 02/07/17 14:19 INR 1.0 (0.9-1.2) 02/07/17 14:19 APTT 27.6 Seconds (25.6-37.1) 02/07/17 14:19 D-Dimer, Quantitative 3442.5 ng/mlDDU (0-230) H 02/09/17 15:00 Sodium 140 mmol/l (132-148) 02/10/17 05:35 Potassium 4.2 MMOL/L (3.6-5.0) 02/10/17 05:35 Chloride 110 mmol/L (98-107) H 02/10/17 05:35 Carbon Dioxide 21 mmol/L (22-30) L 02/10/17 05:35 Anion Gap 13 (10-20) 02/10/17 05:35 BUN 11 mg/dl (7-17) 02/10/17 05:35 Creatinine 0.9 mg/dL (0.7-1.2) 02/10/17 05:35 Est GFR ( Amer) > 60 02/10/17 05:35 Est GFR (Non-Af Amer) > 60 02/10/17 05:35 Random Glucose 80 mg/dL (65-105) 02/10/17 05:35 Calcium 8.1 mg/dL (8.4-10.2) L 02/10/17 05:35 Iron 52 ug/dL (37-170) 02/10/17 05:35 TIBC 372 ug/dL (250-450) 02/10/17 05:35 % Saturation 14 % (20-55) L 02/10/17 05:35 Ferritin 18.3 ng/mL 02/10/17 05:35 Total Bilirubin 0.6 mg/dl (0.2-1.3) 02/10/17 05:35 AST 64 U/L (14-36) H D 02/10/17 05:35 ALT 309 U/L (9-52) H D 02/10/17 05:35 Alkaline Phosphatase 89 U/L (38-126) 02/10/17 05:35 Troponin I < 0.0120 ng/mL (0.00-0.120) 02/07/17 14:19 NT-Pro-B Natriuret Pep 458 pg/ml (0-450) H 02/07/17 14:19 Total Protein 6.0 G/DL (6.3-8.2) L 02/10/17 05:35 Albumin 3.1 g/dL (3.5-5.0) L 02/10/17 05:35 Globulin 3.0 gm/dL (2.2-3.9) 02/10/17 05:35 Albumin/Globulin Ratio 1.0 (1.0-2.1) 02/10/17 05:35 TSH 3rd Generation 1.59 mIU/ML (0.46-4.68) 02/08/17 06:00 Urine Color Yellow (YELLOW) 02/07/17 17:35 Urine Clarity Slighty-cloudy (Clear) 02/07/17 17:35 Urine pH 6.0 (5.0-8.0) 02/07/17 17:35 Ur Specific [place] 1.015 (1.003-1.030) 02/07/17 17:35 Urine Protein 30 mg/dL (NEGATIVE) 02/07/17 17:35 Urine Glucose (UA) Neg mg/dL (Normal) 02/07/17 17:35 Urine Ketones Negative mg/dL (NEGATIVE) 02/07/17 17:35 Urine Blood Large (NEGATIVE) 02/07/17 17:35 Urine Nitrate Negative (NEGATIVE) 02/07/17 17:35 Urine Bilirubin Negative (NEGATIVE) 02/07/17 17:35 Urine Urobilinogen 0.2-1.0 mg/dL (0.2-1.0) 02/07/17 17:35 Ur Leukocyte Esterase Mod Compa/uL (Negative) 02/07/17 17:35 Urine RBC (Auto) 233 /hpf (0-3) H 02/07/17 17:35 Urine Microscopic WBC 59 /hpf (0-5) H 02/07/17 17:35 Ur Squamous Epith Cells 5 /hpf (0-5) 02/07/17 17:35 Urine Bacteria Occ (<OCC) H 02/07/17 17:35 Hyaline Casts 0-2 /hpf (0-2) 02/07/17 17:35 Hepatitis A IgM Ab Negative (NEGATIVE) 02/08/17 10:10 Hep Bs Antigen Negative (NEGATIVE) 02/08/17 10:10 Hep B Core IgM Ab Negative (NEGATIVE) 02/08/17 10:10 Hepatitis C Antibody Negative (NEGATIVE) 02/08/17 10:10 Discharge Exam - Skin Additional comments: ADDENDUM ATTENDING PHYSICIAN NOTE PATIENT SEEN AND EXAMINED. MUCH IMPROVED WITHOUT PAIN. ABD. PAIN, ELEVATED LFTS NOW IMPROVING, HIGH BP IN ED POSSIBLY SECONDARY TO PAIN, NO RX NEEDED POST ONE DOSE OF ANTI HYPERTENSIVE IN ED, BRADYCARDIA ETIOL NOT CLEAR. PATIENT REPORTS SHE FEELS WELL ENOUGH TO GO HOME AND WANTS TO LEAVE - HAS AT HOME. WILL DISCHARGE TO OUTPATIENT FOLLOW UP AND ED INSTRUCTIONS.
--- NOTE | 2017-02-10 17:00 | US ---
PROCEDURE: Bilateral lower extremity venous duplex Doppler. HISTORY: High D dimer. Rule out DVT COMPARISON: None available. TECHNIQUE: Bilateral common femoral, superficial femoral, popliteal and posterior tibial veins were evaluated. Flow was assessed with color Doppler, compressibility, assessment of phasic flow and augmentation response. FINDINGS: COMMON FEMORAL VEIN: Right CFV: Unremarkable. Left CFV: Unremarkable. SUPERFICIAL FEMORAL VEIN: Right SFV: Unremarkable. Left SFV: Unremarkable. POPLITEAL VEIN: Right Popliteal: Unremarkable. Left Popliteal: Unremarkable. POSTERIOR TIBIAL VEIN: Right PTV: Unremarkable. Left PTV: Unremarkable. OTHER FINDINGS: None. IMPRESSION: No evidence of deep venous thrombosis.
--- NOTE | 2017-02-10 21:24 | PN ---
SUBJECTIVE: The patient denies any chest pain or shortness of breath. PHYSICAL EXAMINATION: VITAL SIGNS: Blood pressure 158/86, heart rate 40, temperature 98.1. HEENT: Normocephalic. CHEST: Clear. HEART: S1, S2 regular. EXTREMITIES: No edema. LABORATORY DATA: SMA-7: Sodium 140, potassium 4.2, chloride 110, CO2 21, glucose 80, BUN 11, creatinine 0.9, AST 64, ALT is 309. Venous Doppler of lower extremity is performed. The report is still pending. HIDA scan, normal hepatobiliary HIDA scan. Patent cystic duct. ASSESSMENT: 1. Sinus bradycardia. 2. Rule out underlying sepsis. 3. Liver nodule. RECOMMENDATIONS: Continue current IV Zosyn 3.375 g q.6 hours, subcutaneous heparin 5000 units twice a day unless discontinued by the primary physician. Awaiting venous Doppler lower extremity report. Official report of the echocardiography study revealed normal left ventricular systolic function. Nabil Donald MD
[2017-02-11 15:03] VITALS: O2SAT 98
[2017-02-12 08:08] LABS: 18 KD (IGG) BAND Nonreactive; 23 KD (IGG) BAND Nonreactive; 23 KD (IGM) BAND Nonreactive; 28 KD (IGG) BAND Nonreactive; 30 KD (IGG) BAND Nonreactive; 39 KD (IGG) BAND Nonreactive; 39 KD (IGM) BAND Nonreactive; 41 KD (IGG) BAND Reactive; 41 KD (IGM) BAND Nonreactive; 45 KD (IGG) BAND Nonreactive; 58 KD (IGG) BAND Nonreactive; 66 KD (IGG) BAND Nonreactive; 93 KD (IGG) BAND Nonreactive; LYME DISEASE INTERP (IGG) Negative (Negative)
== END 2017-02-10 16:30 | disposition home or self-care (01) | DRG 376 ==
LOC: H.ER 12:52 → H.ERHOLD 15:59 → H.TEL 21:09
PROVIDERS: ADMIT Emergency Medicine; ATTEND Emergency Medicine
DX: O99.63 Diseases of the digestive system complicating the puerperium (principal); K81.0 Acute cholecystitis; D50.0 Iron deficiency anemia secondary to blood loss (chronic); J90 Pleural effusion, not elsewhere classified; O16.5 Unspecified maternal hypertension, complicating the puerperium; O90.81 Anemia of the puerperium; K76.89 Other specified diseases of liver; R00.1 Bradycardia, unspecified; J45.909 Unspecified asthma, uncomplicated; Z82.49 Family history of ischemic heart disease and other diseases of the circulatory system

== ENCOUNTER 2017-07-05 16:40 | Emergency (ER) | payer MEDICAID ==
[2017-07-05 16:40] VITALS: BMI 35.4
[2017-07-05 16:55] VITALS: BP 144/91; PULSE 82; RESP 17; TEMP 98.8; O2SAT 97
--- NOTE | 2017-07-05 17:22 | ED PDOC ---
Upper Extremity Pain/Injury Time Seen by Provider: 07/05/17 16:51 Chief Complaint (Nursing): Upper Extremity Problem/Injury Chief Complaint (Provider): Left Wrist Pain and Swelling History Per: Patient History/Exam Limitations: no limitations Onset/Duration Of Symptoms: Days Current Symptoms Are (Timing): Still Present Quality: "Pain" Exacerbating Factor(s): Nothing, Movement Additional Complaint(s): 42 year old female presents to the ED complaining of left wrist pain and swelling. The patient reports that last night she fell on to her left hand causing injury. She states that today she notes some pain and swelling. Patient states that she has taken nothing for pain. FAMILY PROVIDER,NO Past Medical History Reviewed: Historical Data, Nursing Documentation, Vital Signs Vital Signs: Last Vital Signs Temp 98.8 F 07/05/17 16:53 Pulse 82 07/05/17 16:53 Resp 17 07/05/17 16:53 BP 144/91 H 07/05/17 16:53 Pulse Ox 97 07/05/17 16:53 - Medical History PMH: Asthma Denies: Depression, Diabetes, HTN, Chronic Kidney Disease - Surgical History Surgical History: No Surg Hx - Family History Family History: States: Unknown Family Hx - Living Arrangements Living Arrangements: With Family - Social History Current smoker - smoking cessation education provided: No Ex-Smoker (has not smoked in the last 12 months): No Alcohol: None Drugs: Denies - Home Medications Home Medications: Ambulatory Orders Medication Instructions Recorded Docusate Sodium [Colace] 100 mg PO BID #30 capsule 02/04/17 Ferrous Sulfate [Feosol] 325 mg PO BID #30 tab 02/04/17 Ibuprofen [Motrin Tab] 600 mg PO Q6 PRN #30 tab 02/04/17 Multimineral/Multivitamin 1 tab PO DAILY tab 02/04/17 [Therapeutic-M Tab] Ibuprofen [Motrin] 600 mg PO Q6 #20 tab 07/05/17 - Allergies Allergies/Adverse Reactions: Allergies Allergy/AdvReac Type Severity Reaction Status Date / Time No Known Allergies Allergy Verified 07/05/17 16:53 Review of Systems Musculoskeletal: Positive for: Other (left wrist pain and swelling) Physical Exam - Reviewed Nursing Documentation Reviewed: Yes Vital Signs Reviewed: Yes - Physical Exam Appears: Positive for: Non-toxic, No Acute Distress Head Exam: Positive for: NORMAL INSPECTION Skin: Positive for: Normal Color, Warm, Dry. Negative for: Rash Eye Exam: Positive for: Normal appearance Pulses-Radial (L): 2+ Pulses-Radial (R): 2+ Extremity: Positive for: Normal ROM (left wrist), Other (mild ecchymosis to dorsal aspect of wrist). Negative for: Tenderness, Deformity, Swelling Neurologic/Psych: Positive for: Alert, Oriented, Gait - ECG O2 Sat by Pulse Oximetry: 97 (RA) Pulse Ox Interpretation: Normal Medical Decision Making Medical Decision Makin Initial Impression 42 y/o female presenting with left wrist pain Initial Plan: * Motrin Tab 600mg PO * RAD Forearm LFFT * RAD Hand LFT * RAD Wrist LFT * Reevaluation XRs: NAD, as read by JENNIFER Pt educated on RICE therapy and placed in metacarpal splint Documented by Zulay Roe acting as a scribe for Teresita Russell PA-C. All medical record entries made by the Scribe were at my direction and personally dictated by me. I have reviewed the chart and agree that the record accurately reflects my personal performance of the history, physical exam, medical decision making, and the department course for this patient. I have also personally directed, reviewed, and agree with the discharge instructions and disposition. Disposition - Clinical Impression Clinical Impression: Wrist contusion - Patient ED Disposition Is Patient to be Admitted: No - Disposition Disposition: Routine/Home Disposition Time: 18:40 Condition: STABLE Prescriptions: Ibuprofen [Motrin] 600 mg PO Q6 #20 tab Instructions: Wrist Injury (ED), RICE Therapy (ED) Forms: [employer] (Swazi)
--- NOTE | 2017-07-05 19:48 | RAD ---
PROCEDURE: Radiographs of the Left Forearm HISTORY: pain s/p fall COMPARISON: None available. TECHNIQUE: Frontal and lateral views obtained. FINDINGS: BONES: No fracture or destructive lesion. JOINT SPACES: Unremarkable. OTHER FINDINGS: None. IMPRESSION: Unremarkable radiographs of the left forearm.
--- NOTE | 2017-07-05 19:50 | RAD ---
PROCEDURE: Left Hand Radiographs. HISTORY: pain s/p fall COMPARISON: None. FINDINGS: BONES: No acute fracture or destructive bony lesion identified. Heterotopic soft tissue calcification is seen medial to the distal segment middle phalanx left index finger. JOINTS: Normal. No osteoarthritic changes. SOFT TISSUES: Normal. OTHER FINDINGS: None. IMPRESSION: No acute fracture or dislocation identified.
--- NOTE | 2017-07-05 19:50 | RAD ---
PROCEDURE: Left Wrist Radiographs. HISTORY: pain s/p fall COMPARISON: None. FINDINGS: BONES: No acute fracture or destructive bony lesion identified. JOINTS: Normal. No dislocation. SOFT TISSUES: Normal. OTHER FINDINGS: None. IMPRESSION: Unremarkable left wrist radiographs.
== END 2017-07-05 18:46 | disposition home or self-care (01) ==
LOC: H.ER 16:40
DX: S60.212A Contusion of left wrist, initial encounter (principal); W19.XXXA Unspecified fall, initial encounter; Y92.89 Other specified places as the place of occurrence of the external cause; J45.909 Unspecified asthma, uncomplicated

== ENCOUNTER 2018-01-21 15:32 | Emergency (ER) | payer MEDICAID ==
[2018-01-21 15:32] VITALS: BMI 35.4
[2018-01-21 16:25] VITALS: RESP 16
[2018-01-21] MEDS ORDERED: Bacitracin OINT 15GM TOP STA (17:45)
--- NOTE | 2018-01-21 18:56 | ED PDOC ---
HPI: General Adult Time Seen by Provider: 01/21/18 16:29 Chief Complaint (Nursing): Abnormal Skin Integrity Chief Complaint (Provider): Wound Evaluation History Per: Patient History/Exam Limitations: no limitations Onset/Duration Of Symptoms: Days (x21) Additional Complaint(s): 42 y/o female with no significant PMHx presents to the ED for a wound evaluation. Patient complains of an abscess to the right buttock for the last three weeks. Patient reports she recently returned from the [facility]. Patient states that while there, she sought evaluation for the same complaint. Patient reports she received a shot of Rocephin IM and was told to follow up upon returning to the [place]. Otherwise: (-) fever, (-) chills, (-) medications prior to arrival, (-) other complaints at presents. Tetanus vaccination: up to date. LNMP: 01/02/2018 PMD: Derrick Ferrera Past Medical History Reviewed: Historical Data, Nursing Documentation, Vital Signs Vital Signs: Last Vital Signs Temp 98.4 F 01/21/18 19:20 Pulse 89 01/21/18 19:20 Resp 16 01/21/18 19:20 BP 122/82 01/21/18 19:20 Pulse Ox 96 01/24/18 12:19 - Medical History PMH: Asthma - Surgical History Surgical History: No Surg Hx - Family History Family History: States: Unknown Family Hx - Social History Current smoker - smoking cessation education provided: No Alcohol: None Drugs: Denies - Home Medications Home Medications: Ambulatory Orders Medication Instructions Recorded Docusate Sodium [Colace] 100 mg PO BID #30 capsule 02/04/17 Ferrous Sulfate [Feosol] 325 mg PO BID #30 tab 02/04/17 Ibuprofen [Motrin Tab] 600 mg PO Q6 PRN #30 tab 02/04/17 Multimineral/Multivitamin 1 tab PO DAILY tab 02/04/17 [Therapeutic-M Tab] Ibuprofen [Motrin] 600 mg PO Q6 #20 tab 07/05/17 Cephalexin [Keflex] 500 mg PO TID #21 capsule 01/21/18 Naproxen 500 mg PO BID PRN #20 tab 01/21/18 - Allergies Allergies/Adverse Reactions: Allergies Allergy/AdvReac Type Severity Reaction Status Date / Time No Known Allergies Allergy Verified 07/05/17 16:53 Review of Systems ROS Statement: Except As Marked, All Systems Reviewed And Found Negative Constitutional: Negative for: Fever, Chills Skin: Positive for: Other (Wound evaluation ) Physical Exam - Reviewed Nursing Documentation Reviewed: Yes Vital Signs Reviewed: Yes - Physical Exam Comments: GENERAL APPEARANCE: Patient is resting comfortably, awake, alert, oriented x 3, in no distress. Neck: Supple, FROM ENT: Mucus membranes moist. Airway patent, (-) stridor. Skin: warm and dry, 1.5 cm x 1.5 cm area of erythema to the superior lateral aspect of the right buttock. Localized tenderness and warmth (+) central new tissue growth(-) induration, (-) fluctuance (-) active drainage Pulmonary: lungs clear to auscultation bilaterally; no rhonchi, no wheezing, no rales. Respirations even and nonlabored. Cardiac: regular rate and rhythm Abdomen: Soft, non-tender, non-distended (-) guarding Extremities: No deformity, full range of motion. Neurological: Mental status as above, (-) focal deficit (-) facial asymmetry. Gait steady, speech clear. - ECG O2 Sat by Pulse Oximetry: 96 (RA) Pulse Ox Interpretation: Normal Medical Decision Making Medical Decision Making: Time: 1744 Impression: Abscess Plan: -- Bacitracin dressing -- Keflex 500 mg PO -- Re-evaluation 1854 On re-evaluation, patient reports improvement of symptoms. On exam, patient remains AAOx3, in no acute distress. Lungs clear to auscultation, cardiac RRR, abdomen soft, non-tender, repeat neuro exam shows no focal findings. VSS, stable for discharge. Lab/Diagnostic results d/w the patient in great detail. Diagnosis of abscess d/ w the patient. Based on history, exam and diagnostic results, plan will be for outpatient follow up. Patient instructed to follow-up with pmd / referral provided / the clinic in 1- 2 days without fail. Advised to take medication as prescribed. Return to the emergency room at any time for any new or worsening symptoms. Patient states she fully agrees with and understands discharge instructions. States that she agrees with the plan and disposition. Verbalized and repeated discharge instructions and plan. I have given the patient opportunity to ask any additional questions. Scribe Attestation: Documented by Levon Suero acting as a scribe for Sania Guevara PA-C. Provider Scribe Attestation: All medical record entries made by the Scribe were at my direction and personally dictated by me. I have reviewed the chart and agree that the record accurately reflects my personal performance of the history, physical exam, medical decision making, and the department course for this patient. I have also personally directed, reviewed, and agree with the discharge instructions and disposition. Disposition - Clinical Impression Clinical Impression: Abscess - Patient ED Disposition Is Patient to be Admitted: No Counseled Patient/Family Regarding: Studies Performed, Diagnosis, Need For Followup, Rx Given - Disposition Referrals: Derrick Ferrera MD [Family Provider] - Disposition: Routine/Home Disposition Time: 18:57 Condition: STABLE Additional Instructions: FOLLOW UP WITH PMD IN 2 DAYS FOR WOUND CHECK. TAKE ANTIBIOTICS PRESCRIBED. The emergency medical care you received today was directed at your acute symptoms. If you were prescribed any medication, please fill it and take as directed. It may take several days for your symptoms to resolve. Return to the Emergency Department if your symptoms worsen, do not improve, or if you have any other problems. Please contact your doctor in 2 days for re-evaluation and follow up / or call one of the physicians/clinics you have been referred to that are listed on the Patient Visit Information form that is included in your discharge packet. Bring any paperwork you were given at discharge with you along with any medications you are taking to your follow up visit. Our treatment cannot replace ongoing medical care by a primary care provider (PCP) outside of the emergency department. Prescriptions: Cephalexin [Keflex] 500 mg PO TID #21 capsule Naproxen 500 mg PO BID PRN #20 tab PRN Reason: Pain, Moderate (4-7) Instructions: Boil, Skin Abscess Forms: [employer] (Portuguese) Print Language: MONGOLIAN - POA Present On Arrival: None
[2018-01-21 20:59] VITALS: BP 122/82; PULSE 89; TEMP 98.4
[2018-01-24 12:10] VITALS: O2SAT 96
== END 2018-01-21 19:20 | disposition home or self-care (01) ==
LOC: H.ER 15:32
DX: L02.31 Cutaneous abscess of buttock (principal)